=== PATIENT | female | born 1975 | race Caucasian/White ===

== ENCOUNTER 2017-01-20 11:22 | Emergency (ER) | payer OTHER ==
[~2017-01-20] VITALS: Ht 162.6 cm; Wt 80.0 kg
[~2017-01-20 11:22] MED LIST: BUSP10 PO; QUET200 PO
[2017-01-20 11:40] VITALS: BP 134/78; PULSE 91; RESP 16; TEMP 98.2; O2SAT 98
--- NOTE | 2017-01-20 12:07 | PD ---
HPI Chief Complaint: Psychiatric Symptoms Time Seen by Provider: 11:53 Travel History International Travel<30 days: No Contact w/Intl Traveler<30days: No Traveled to known affect area: No History of Present Illness HPI 41-year-old female that presents to the ED for evaluation of psychiatric evaluation. Patient was [place] acted by police after apparently she has been delusional having hallucinations. Patient herself is a poor historian and cannot really give me a good history. She seems to be somewhat psychotic. She denies any suicidal or homicidal ideation. Per patient she is here to get her medications adjusted. Per patient she takes trazodone and Prozac for depression. She denies any chest pain or shortness of breath. She was [place] acted by police. Patient per old records has a history of schizoaffective disorder. She denies any other medical issues. No cuts. No fevers chills or sweats. PFSH Past Medical History Cancer: No Cardiovascular Problems: No Diabetes: No Diminished Hearing: No Endocrine: No Headaches: No Immune Disorder: No Musculoskeletal: No Neurologic: No Psychiatric: Yes (pt states she was in the [facility] [place] 3 months ago) Respiratory: No Schizophrenia: Yes Seizures: No Tetanus Vaccination: < 5 Years Influenza Vaccination: No ?: Not LMP: 12/28/16 : 1 Para: 1 Social History Alcohol Use: Yes (occu) Tobacco Use: Yes (less than ppd) Substance Use: No Allergies-Medications (Allergen,Severity, Reaction): Coded Allergies: No Known Allergies (Unverified , 05/17/15) Reported Meds & Prescriptions Reported Meds & Active Scripts Active Quetiapine Fumarate 200 Mg Tab 600 Mg PO DIRECTED 15 Days Take 1 tab (200mg) by mouth every morning and take 3 tabs (600mg) by mouth every evening before bed. Buspar 10 mg Tab (Buspirone HCl) 10 Mg Tab 10 Mg PO Q8HR 15 Days Review of Systems Except as stated in HPI: all other systems reviewed are Neg Physical Exam Narrative GENERAL: SKIN: Warm and dry. HEAD: Atraumatic. Normocephalic. EYES: Pupils equal and round. No scleral icterus. No injection or drainage. ENT: No nasal bleeding or discharge. Mucous membranes pink and moist. Tongue is midline. No uvula deviation. NECK: Trachea midline. No JVD. CARDIOVASCULAR: Regular rate and rhythm. No murmurs, S3, S4. RESPIRATORY: No accessory muscle use. Clear to auscultation. Breath sounds equal bilaterally. GASTROINTESTINAL: Abdomen soft, non-tender, nondistended. Hepatic and splenic margins not palpable. MUSCULOSKELETAL: Extremities without clubbing, cyanosis, or edema. No obvious deformities. Full range of motion of the upper and lower extremities bilaterally. 2+ pulses bilaterally. NEUROLOGICAL: Awake and alert. No obvious cranial nerve deficits. Motor grossly within normal limits. Five out of 5 muscle strength in the arms and legs. Normal speech. PSYCHIATRIC: Appropriate mood and affect; insight and judgment normal. Data Data Last Documented VS Vital Signs Date Time Temp Pulse Resp B/P (MAP) Pulse Ox O2 Delivery O2 Flow Rate FiO2 01/20/17 11:40 98.2 91 16 134/78 (96) 98 Orders Orders Complete Blood Count With Diff (01/20/17 11:52) Comprehensive Metabolic Panel (01/20/17 11:52) Ed Urine Pregnancytest Poc (01/20/17 11:52) Psych Screen (01/20/17 11:52) Drug Screen, Random Urine (01/20/17 11:52) Alcohol (Ethanol) (01/20/17 11:52) Salicylates (Aspirin) (01/20/17 11:52) Tylenol (Acetaminophen) (01/20/17 11:52) ^ Sitter (01/20/17 12:07) Labs Laboratory Tests Test 01/20/17 12:10 White Blood Count 11.8 TH/MM3 Red Blood Count 4.18 MIL/MM3 Hemoglobin 14.1 GM/DL Hematocrit 40.2 % Mean Corpuscular Volume 96.0 FL Mean Corpuscular Hemoglobin 33.6 PG Mean Corpuscular Hemoglobin Concent 35.0 % Red Cell Distribution Width 13.4 % Platelet Count 346 TH/MM3 Mean Platelet Volume 6.9 FL Neutrophils (%) (Auto) 64.9 % Lymphocytes (%) (Auto) 27.9 % Monocytes (%) (Auto) 4.9 % Eosinophils (%) (Auto) 1.2 % Basophils (%) (Auto) 1.1 % Neutrophils # (Auto) 7.6 TH/MM3 Lymphocytes # (Auto) 3.3 TH/MM3 Monocytes # (Auto) 0.6 TH/MM3 Eosinophils # (Auto) 0.1 TH/MM3 Basophils # (Auto) 0.1 TH/MM3 CBC Comment DIFF FINAL Differential Comment Blood Urea Nitrogen 9 MG/DL Creatinine 1.06 MG/DL Random Glucose 98 MG/DL Total Protein 8.1 GM/DL Albumin 3.6 GM/DL Calcium Level 9.3 MG/DL Alkaline Phosphatase 104 U/L Aspartate Amino Transf (AST/SGOT) 22 U/L Alanine Aminotransferase (ALT/SGPT) 27 U/L Total Bilirubin 0.3 MG/DL Sodium Level 139 MEQ/L Potassium Level 4.0 MEQ/L Chloride Level 104 MEQ/L Carbon Dioxide Level 26.7 MEQ/L Anion Gap 8 MEQ/L Estimat Glomerular Filtration Rate 57 ML/MIN Salicylates Level 4.2 MG/DL Urine Opiates Screen NEG Acetaminophen Level LESS THAN 2.0 MCG/ML Urine Barbiturates Screen NEG Urine Amphetamines Screen NEG Urine Benzodiazepines Screen NEG Urine Cocaine Screen NEG Urine Cannabinoids Screen NEG Ethyl Alcohol Level LESS THAN 3 MG/DL MDM Medical Decision Making Medical Screen Exam Complete: Yes Emergency Medical Condition: Yes Medical Record Reviewed: Yes Interpretation(s) CBC & BMP Diagram 01/20/17 12:10 Total Protein 8.1, Albumin 3.6, Calcium Level 9.3, Alkaline Phosphatase 104, Aspartate Amino Transf (AST/SGOT) 22, Alanine Aminotransferase (ALT/SGPT) 27, Total Bilirubin 0.3 tox negative Differential Diagnosis Depression versus suicidal ideation versus anxiety versus adjustment disorder versus mood disorder versus bipolar disorder versus schizophrenia versus paranoid disorder versus psychosis versus substance abuse versus alcohol abuse versus alcohol induced psychosis versus homicidality addition versus cutting versus personality disorder Narrative Course 41-year-old female that presents to the ED for evaluation of psych. Patient was properly examined and was found to have signs and symptoms consistent with appears to be psychiatric illness. No sign of acute medical distress. Labs were drawn. Patient was medically cleared. Okay to be seen by psych. Mental health screening was discussed with the patient. Diagnosis Primary Impression: Schizophrenia Qualified Codes: F20.9 - Schizophrenia, unspecified Ian Rodriguez Jan 20, 2017 12:07
[2017-01-20 12:44] LABS: AUTOMATED NEUTROPHIL # 7.6 TH/MM3 (1.8-7.7); BASOPHIL # 0.1 TH/MM3 (0-0.2); BASOPHIL % 1.1 % (0.0-2.0); EOSINOPHIL # 0.1 TH/MM3 (0-0.4); EOSINOPHIL % 1.2 % (0.0-4.0); HEMATOCRIT 40.2 % (35.0-46.0); HEMO FLAGS DIFF FINAL; LYMPH % 27.9 % (9.0-44.0); LYMPHOCYTE # 3.3 TH/MM3 (1.0-4.8); MEAN CORPUSCULAR HEMOGLOBIN 33.6 PG (27.0-34.0); MONO % 4.9 % (0.0-8.0); NEUT % 64.9 % (16.0-70.0); PLATELET COUNT 346 TH/MM3 (150-450); RED BLOOD COUNT 4.18 MIL/MM3 (4.00-5.30); RED CELL DISTRIBUTION WIDTH 13.4 % (11.6-17.2); WHITE BLOOD COUNT 11.8 TH/MM3 (4.0-11.0)
[2017-01-20 13:02] LABS: ALT (GPT) 27 U/L (10-53); ANION GAP 8 MEQ/L (5-15); AST (GOT) 22 U/L (15-37); BICARBONATE 26.7 MEQ/L (21.0-32.0); BLOOD UREA NITROGEN 9 MG/DL (7-18); CHLORIDE 104 MEQ/L (98-107); GLOMERULAR FILTRATION RATE 57 ML/MIN (>89); SODIUM (NA) 139 MEQ/L (136-145)
[2017-01-20 13:03] LABS: ALKALINE PHOSPHATASE 104 U/L (45-117); TOTAL BILIRUBIN ADULT 0.3 MG/DL (0.2-1.0)
[2017-01-20 13:05] LABS: ACETAMINOPHEN LESS THAN 2.0 MCG/ML (10.0-30.0); ALCOHOL LESS THAN 3 MG/DL (0-5)
[2017-01-20 13:26] VITALS: BP 120/70; PULSE 80; RESP 18; O2SAT 100
[2017-01-20 18:50] VITALS: BP 145/67; PULSE 101; RESP 20; O2SAT 100
[2017-01-20] MEDS ORDERED: SERO300T PO (20:50)
[2017-01-20] MEDS ORDERED: SERO200T PO (20:50)
[2017-01-20] MEDS ORDERED: BUSP10TA PO (20:50)
[2017-01-20] MEDS: busPIRone HCL 10 MG TAB PO SCH (21:48)
[2017-01-20] MEDS ORDERED: QUEtiapine FUMARATE 300 MG TAB PO SCH (21:48)
[2017-01-20 22:00] VITALS: BP 117/57; PULSE 68; RESP 18; O2SAT 95
[2017-01-21 02:09] VITALS: BP 113/66; PULSE 87; RESP 18; O2SAT 97
[2017-01-21 06:08] VITALS: BP 115/69; PULSE 89; RESP 18; O2SAT 99
[2017-01-21] MEDS ORDERED: QUEtiapine FUMARATE 200 MG TAB PO SCH (09:00)
[2017-01-21] MEDS: busPIRone HCL 10 MG TAB PO SCH (09:50)
--- NOTE | 2017-01-21 12:57 | PD ---
History of Present Illness Chief Complaint: Psychiatric Symptoms Time Seen by Provider: 12:45 Travel History International Travel<30 Days: No Contact w/Intl Traveler<30days: No Known affected area: No Legal Status Legal Status: [place] Act [place] Act Signed By: LUIS E Jones, [facility] History of Present Illness: History of Present Illness HPI 41-year-old female with a history of schizophrenia that presents to the ED under a [place] act initiated by provider at [facility] . The BA states " patient is delusional and has been non -adherent with her medications. Disorganized and disoriented.. . Seen. Record reviewed. Patient monitored in J pod for extended period of time and presented no behavioral concerns. No suicidality. She does tell me that she slept and that she feels better this morning. She received 2 doses of Seroquel as well as Buspar. She is alert , oriented,calm. Speech is clear. Does not appear to be responding to internal stimuli. No suicidal or homicidal ideation. States has medication at home. denies any hallucinatory process. PFSH Past Medical History Cancer: No Cardiovascular Problems: No Diabetes: No Diminished Hearing: No Endocrine: No Headaches: No Immune Disorder: No Musculoskeletal: No Neurologic: No Psychiatric: Yes (pt states she was in the [facility] 3 months ago) Respiratory: No Schizophrenia: Yes Seizures: No Tetanus Vaccination: < 5 Years Influenza Vaccination: No ?: Not LMP: 12/28/16 : 1 Para: 1 Psychiatric History Psychiatric History Hx Psychiatric Treatment: Patient is currently seeing Dr. Metz History of Inpatient Treatment: Yes Guns or firearms in home: No Social History Single female . Lives by herself. Hx Alcohol Use: Yes (occu) Hx Tobacco Use: Yes (less than ppd) Hx Substance Use: No Hx of Substance Use Treatment: No Family Psychiatric History Negative Allergies-Medications (Allergen,Severity, Reaction): Coded Allergies: No Known Allergies (Unverified , 05/17/15) Reported Meds & Prescriptions Reported Meds & Active Scripts Active Reported Seroquel (Quetiapine Fumarate) 300 Mg Tab 600 Mg PO HS Seroquel (Quetiapine Fumarate) 200 Mg Tab 200 Mg PO DAILY Buspirone (Buspirone HCl) 10 Mg Tab 10 Mg PO TID Review of Systems Except as stated in HPI: all other systems reviewed are Neg Exam Alert: Yes [place]: Person Mood: Calm Affect: Appropriate Speech: Clear, Logical Eye Contact: Normal Hallucinations: Auditory (deneis any) Delusions: No Suicidal: Ideation (deneis any) Homicidal: Ideation (Deneis any) Insight/Judgement Fair. Not impaired. MDM Medical Decision Making Medical Record Reviewed: Yes Assessment/Plan 41-year-old female that presents to the ED for evaluation of psychiatric evaluation. Patient was [place] acted after apparently she has been delusional having hallucinations Patient may be at baseline She has also received medication. At the time of this evaluation denies any hallucinations, no suicidal or homicidal ideation, intent or plan. At this time does not meet [place] act criteria . Will lift BA Psychiatrically clear for discharge from ED. Orders Orders Diet Regular Basic (01/20/17 Dinner) Quetiapine (Seroquel) (01/21/17 09:00) Buspirone (Buspar) (01/20/17 21:48) Quetiapine (Seroquel) (01/20/17 21:48) Diet Regular Basic (01/21/17 Breakfast) Diet Regular Basic (01/21/17 Lunch) Results Vital Signs Date Time Temp Pulse Resp B/P (MAP) Pulse Ox O2 Delivery O2 Flow Rate FiO2 01/21/17 06:08 89 18 115/69 (84) 99 Room Air 01/21/17 02:09 87 18 113/66 (82) 97 Room Air 01/20/17 22:00 68 18 117/57 (77) 95 Room Air 01/20/17 19:21 101 20 01/20/17 18:50 101 20 145/67 (93) 100 Room Air 01/20/17 13:26 80 18 120/70 (87) 100 Room Air Diagnosis Primary Impression: Schizophrenia Psychiatrically Cleared: Yes Departure Forms: Tests/Procedures Patient Instructions: General Instructions Med/ Other Pt Specific Info: No Change to Meds Disposition: 01 DISCHARGE HOME Problem Qualifiers Primary Impression: Schizophrenia Qualified Codes: F20.9 - Schizophrenia, unspecified Anastasiia Hoang Jan 21, 2017 12:57
--- NOTE | 2017-01-21 13:10 | PD ---
Physical Exam Time Seen by Provider: 13:09 Narrative Please refer to previous providers documentation for details surrounding the patient's current visit. Data Data Last Documented VS Vital Signs Date Time Temp Pulse Resp B/P (MAP) Pulse Ox O2 Delivery O2 Flow Rate FiO2 01/21/17 06:08 89 18 115/69 (84) 99 Room Air 01/20/17 11:40 98.2 Orders Orders Complete Blood Count With Diff (01/20/17 11:52) Comprehensive Metabolic Panel (01/20/17 11:52) Ed Urine Pregnancytest Poc (01/20/17 11:52) Psych Screen (01/20/17 11:52) Drug Screen, Random Urine (01/20/17 11:52) Alcohol (Ethanol) (01/20/17 11:52) Salicylates (Aspirin) (01/20/17 11:52) Tylenol (Acetaminophen) (01/20/17 11:52) ^ Sitter (01/20/17 12:07) Diet Regular Basic (01/20/17 Dinner) Quetiapine (Seroquel) (01/21/17 09:00) Buspirone (Buspar) (01/20/17 21:48) Quetiapine (Seroquel) (01/20/17 21:48) Diet Regular Basic (01/21/17 Breakfast) Diet Regular Basic (01/21/17 Lunch) Labs Laboratory Tests Test 01/20/17 12:10 White Blood Count 11.8 TH/MM3 Red Blood Count 4.18 MIL/MM3 Hemoglobin 14.1 GM/DL Hematocrit 40.2 % Mean Corpuscular Volume 96.0 FL Mean Corpuscular Hemoglobin 33.6 PG Mean Corpuscular Hemoglobin Concent 35.0 % Red Cell Distribution Width 13.4 % Platelet Count 346 TH/MM3 Mean Platelet Volume 6.9 FL Neutrophils (%) (Auto) 64.9 % Lymphocytes (%) (Auto) 27.9 % Monocytes (%) (Auto) 4.9 % Eosinophils (%) (Auto) 1.2 % Basophils (%) (Auto) 1.1 % Neutrophils # (Auto) 7.6 TH/MM3 Lymphocytes # (Auto) 3.3 TH/MM3 Monocytes # (Auto) 0.6 TH/MM3 Eosinophils # (Auto) 0.1 TH/MM3 Basophils # (Auto) 0.1 TH/MM3 CBC Comment DIFF FINAL Differential Comment Blood Urea Nitrogen 9 MG/DL Creatinine 1.06 MG/DL Random Glucose 98 MG/DL Total Protein 8.1 GM/DL Albumin 3.6 GM/DL Calcium Level 9.3 MG/DL Alkaline Phosphatase 104 U/L Aspartate Amino Transf (AST/SGOT) 22 U/L Alanine Aminotransferase (ALT/SGPT) 27 U/L Total Bilirubin 0.3 MG/DL Sodium Level 139 MEQ/L Potassium Level 4.0 MEQ/L Chloride Level 104 MEQ/L Carbon Dioxide Level 26.7 MEQ/L Anion Gap 8 MEQ/L Estimat Glomerular Filtration Rate 57 ML/MIN Salicylates Level 4.2 MG/DL Urine Opiates Screen NEG Acetaminophen Level LESS THAN 2.0 MCG/ML Urine Barbiturates Screen NEG Urine Amphetamines Screen NEG Urine Benzodiazepines Screen NEG Urine Cocaine Screen NEG Urine Cannabinoids Screen NEG Ethyl Alcohol Level LESS THAN 3 MG/DL MDM Medical Record Reviewed: Yes Supervised Visit with RADHA: No Narrative Course Patient was brought in yesterday under a [place] act. Patient has been seen and evaluated by psychiatric assistant Gladys. She has lifted the [place] act and patient will be discharged home with diagnosis schizophrenia. Patient has medication available to her there. She'll be discharged at this time. Diagnosis Primary Impression: Schizophrenia Qualified Codes: F20.9 - Schizophrenia, unspecified Patient Instructions: General Instructions Departure Forms: Tests/Procedures Additional Instruction: Take all meds as previously prescribed. Follow up with current doctor at [facility]. Return to ED for any worsening. Med/Other Pt SpecificInfo: No Change to Meds Disposition: 01 DISCHARGE HOME Condition: Stable Nadia Javier Jan 21, 2017 13:10
[2017-01-21 13:17] VITALS: BP 115/69; PULSE 89; RESP 18; O2SAT 99
== END 2017-01-21 14:57 | disposition home or self-care (01) ==
LOC: NEPJ 11:22
DX: F20.9 Schizophrenia, unspecified (principal); Z79.899 Other long term (current) drug therapy
CPT/HCPCS: 80053; 80307; 84703; 85025; 99285

== ENCOUNTER 2017-02-25 15:37 | Inpatient (IN) | payer OTHER ==
[~2017-02-25] VITALS: Ht 162.6 cm; Wt 89.1 kg
[~2017-02-25 15:37] MED LIST changes: -BUSP10 PO; +BUSP10TA PO; -QUET200 PO; +SERO200T PO; +SERO300T PO
[2017-02-25 15:47] VITALS: BP 131/67; PULSE 92; RESP 20; TEMP 97.6; O2SAT 100
[2017-02-25 16:41] LABS: AUTOMATED NEUTROPHIL # 7.9 TH/MM3 (1.8-7.7); BASOPHIL # 0.1 TH/MM3 (0-0.2); BASOPHIL % 1.1 % (0.0-2.0); EOSINOPHIL # 0.1 TH/MM3 (0-0.4); EOSINOPHIL % 0.8 % (0.0-4.0); HEMATOCRIT 43.3 % (35.0-46.0); HEMO FLAGS DIFF FINAL; LYMPH % 26.6 % (9.0-44.0); LYMPHOCYTE # 3.2 TH/MM3 (1.0-4.8); MEAN CORPUSCULAR HEMOGLOBIN 32.4 PG (27.0-34.0); MEAN CORPUSCULAR HGB CONC 34.1 % (32.0-36.0); MONO % 6.2 % (0.0-8.0); NEUT % 65.3 % (16.0-70.0); PLATELET COUNT 401 TH/MM3 (150-450); RED BLOOD COUNT 4.56 MIL/MM3 (4.00-5.30); RED CELL DISTRIBUTION WIDTH 13.2 % (11.6-17.2)
[2017-02-25 16:48] LABS: BLOOD, URINE MOD (NEG); COMMENT (UR) CULT NOT INDICATED; CULTURE IF INDICATED CULT NOT INDICATED; GLUCOSE,URINE NEG (NEG); KETONE, URINE TRACE mg/dL (NEG); NITRITE,URINE NEG (NEG); PH, URINE 6.5 (5.0-8.5); SQUAMOUS EPITHELIAL CELL URINE 1 /hpf (0-5); URINE COLOR YELLOW (YELLW/STRAW)
[2017-02-25 17:05] LABS: ALT (GPT) 53 U/L (10-53); ANION GAP 8 MEQ/L (5-15); AST (GOT) 39 U/L (15-37); BICARBONATE 24.1 MEQ/L (21.0-32.0); BLOOD UREA NITROGEN 13 MG/DL (7-18); CHLORIDE 105 MEQ/L (98-107); GLOMERULAR FILTRATION RATE 57 ML/MIN (>89); POTASSIUM 3.4 MEQ/L (3.5-5.1); SODIUM (NA) 137 MEQ/L (136-145)
[2017-02-25 17:07] LABS: ALKALINE PHOSPHATASE 94 U/L (45-117); TOTAL BILIRUBIN ADULT 0.4 MG/DL (0.2-1.0)
[2017-02-25] MEDS ORDERED: POTASSIUM CHLORIDE 20 MEQ CONTROLLED RELEASE TAB PO ONE (18:00)
--- NOTE | 2017-02-25 18:00 | PD ---
HPI Chief Complaint: Psychiatric Symptoms Time Seen by Provider: 17:56 Travel History International Travel<30 days: No Contact w/Intl Traveler<30days: No Traveled to known affect area: No History of Present Illness HPI This is a 41-year-old female with history of schizophrenia who presents under ex parte today sign by a house director. According to her paperwork the patient threatened to kill her father as he was attempting to talk her into seeking help for her psychiatric condition. In addition paperwork states that she has delusions of grandeur expressed verbally, engages and self abuse, has been refusing psychiatric evaluation or treatment. The patient reports noncompliance with her psychiatric medications. She is somewhat of a poor historian so history is primarily obtained from her paperwork and chart review. PFSH Past Medical History Cancer: No Cardiovascular Problems: No Diabetes: No Diminished Hearing: No Endocrine: No Headaches: No Immune Disorder: No Implanted Vascular Access Dvce: No Musculoskeletal: No Neurologic: No Psychiatric: Yes (pt states she was in the [facility] 3 months ago) Respiratory: No Schizophrenia: Yes Seizures: No Tetanus Vaccination: < 5 Years ?: Not : 1 Para: 1 Past Surgical History Surgical History: No Previous Surgery Other Surgery: No Social History Alcohol Use: Yes (occu) Tobacco Use: Yes (less than ppd) Substance Use: No Allergies-Medications (Allergen,Severity, Reaction): Coded Allergies: No Known Allergies (Unverified , 02/25/17) Reported Meds & Prescriptions Reported Meds & Active Scripts Active Reported Seroquel (Quetiapine Fumarate) 300 Mg Tab 600 Mg PO HS Seroquel (Quetiapine Fumarate) 200 Mg Tab 200 Mg PO DAILY Buspirone (Buspirone HCl) 10 Mg Tab 10 Mg PO TID Review of Systems Except as stated in HPI: all other systems reviewed are Neg Physical Exam Narrative GENERAL: Well-developed well-nourished female in no acute distress eating hospital. Initial examination. SKIN: Warm and dry. HEAD: Atraumatic. Normocephalic. EYES: Pupils equal and round. No scleral icterus. No injection or drainage. ENT: No nasal bleeding or discharge. Mucous membranes pink and moist. NECK: Trachea midline. No JVD. CARDIOVASCULAR: Regular rate and rhythm. No murmur appreciated. RESPIRATORY: No accessory muscle use. Clear to auscultation. Breath sounds equal bilaterally. GASTROINTESTINAL: Abdomen soft, non-tender, nondistended. Hepatic and splenic margins not palpable. MUSCULOSKELETAL: No obvious deformities. No clubbing. No cyanosis. No edema. NEUROLOGICAL: Awake and alert. No obvious cranial nerve deficits. Motor grossly within normal limits. PSYCHIATRIC: Rapid pressured speech, flat affect, insight and judgment appear limited Data Data Last Documented VS Vital Signs Date Time Temp Pulse Resp B/P (MAP) Pulse Ox O2 Delivery O2 Flow Rate FiO2 02/25/17 18:18 80 18 115/62 (79) 99 Room Air 02/25/17 15:47 97.6 Orders Orders Complete Blood Count With Diff (02/25/17 16:11) Comprehensive Metabolic Panel (02/25/17 16:11) Urinalysis - C+S If Indicated (02/25/17 16:11) Psych Screen (02/25/17 16:11) Drug Screen, Random Urine (02/25/17 16:11) Diet Regular Basic (02/25/17 Dinner) Potassium Chloride (Kcl) (02/25/17 18:00) Labs Laboratory Tests Test 02/25/17 16:10 White Blood Count 12.0 TH/MM3 Red Blood Count 4.56 MIL/MM3 Hemoglobin 14.8 GM/DL Hematocrit 43.3 % Mean Corpuscular Volume 95.0 FL Mean Corpuscular Hemoglobin 32.4 PG Mean Corpuscular Hemoglobin Concent 34.1 % Red Cell Distribution Width 13.2 % Platelet Count 401 TH/MM3 Mean Platelet Volume 6.8 FL Neutrophils (%) (Auto) 65.3 % Lymphocytes (%) (Auto) 26.6 % Monocytes (%) (Auto) 6.2 % Eosinophils (%) (Auto) 0.8 % Basophils (%) (Auto) 1.1 % Neutrophils # (Auto) 7.9 TH/MM3 Lymphocytes # (Auto) 3.2 TH/MM3 Monocytes # (Auto) 0.7 TH/MM3 Eosinophils # (Auto) 0.1 TH/MM3 Basophils # (Auto) 0.1 TH/MM3 CBC Comment DIFF FINAL Differential Comment Urine Color YELLOW Urine Turbidity CLEAR Urine pH 6.5 Urine Specific [place] 1.021 Urine Protein 30 mg/dL Urine Glucose (UA) NEG mg/dL Urine Ketones TRACE mg/dL Urine Occult Blood MOD Urine Nitrite NEG Urine Bilirubin NEG Urine Urobilinogen 2.0 MG/DL Urine Leukocyte Esterase SMALL Urine RBC 4 /hpf Urine WBC 3 /hpf Urine Squamous Epithelial Cells 1 /hpf Microscopic Urinalysis Comment CULT NOT INDICATED Blood Urea Nitrogen 13 MG/DL Creatinine 1.07 MG/DL Random Glucose 92 MG/DL Total Protein 8.1 GM/DL Albumin 3.5 GM/DL Calcium Level 8.8 MG/DL Alkaline Phosphatase 94 U/L Aspartate Amino Transf (AST/SGOT) 39 U/L Alanine Aminotransferase (ALT/SGPT) 53 U/L Total Bilirubin 0.4 MG/DL Sodium Level 137 MEQ/L Potassium Level 3.4 MEQ/L Chloride Level 105 MEQ/L Carbon Dioxide Level 24.1 MEQ/L Anion Gap 8 MEQ/L Estimat Glomerular Filtration Rate 57 ML/MIN Urine Opiates Screen NEG Urine Barbiturates Screen NEG Urine Amphetamines Screen NEG Urine Benzodiazepines Screen NEG Urine Cocaine Screen NEG Urine Cannabinoids Screen NEG MDM Medical Decision Making Medical Screen Exam Complete: Yes Emergency Medical Condition: Yes Medical Record Reviewed: Yes Differential Diagnosis Schizophrenia, medication noncompliance, acute psychosis, substance induced mood disorder, schizoaffective disorder, delirium, encephalitis, meningitis Narrative Course 41-year-old female with history of schizophrenia presents under ex parte signed by house director for psychiatric evaluation. Mental health screening discussed with the patient. Psychiatric screen ordered. Her lab work is repeated. Her potassium is mildly low, she was given 40 mEq of oral potassium chloride. The patient is medically cleared for psychiatric disposition. Diagnosis Primary Impression: Schizophrenia Qualified Codes: F20.9 - Schizophrenia, unspecified Deondre Maddox Feb 25, 2017 18:00
[2017-02-25 18:18] VITALS: BP 115/62; PULSE 80; RESP 18; O2SAT 99
[2017-02-25] MEDS ORDERED: TRAZ1TAB45 PO (21:21)
[2017-02-25] MEDS ORDERED: ARIP1TAB13 PO (21:26)
[2017-02-25 22:02] VITALS: BP 152/64; PULSE 73; RESP 16; O2SAT 96
[2017-02-26 02:00] VITALS: BP 118/58; PULSE 82; RESP 16; O2SAT 97
[2017-02-26 06:11] VITALS: BP 115/55; PULSE 89; RESP 17; O2SAT 97
[2017-02-26] MEDS ORDERED: MAGNESIUM HYDROXIDE SUSP 30 ML CUP PO PRN (10:45)
[2017-02-26] MEDS ORDERED: ALUMINUM/MAGNESIUM/SIMETH 30 ML CUP PO PRN (10:45)
[2017-02-26 12:59] VITALS: BP 121/59; PULSE 58; RESP 20; TEMP 96.3; O2SAT 98
[2017-02-26] MEDS: NICOTINE 21 MG/24 HR PATCH T-DERMAL SCH (14:55)
[2017-02-26] MEDS: ARIPiprazole 15 MG TAB PO SCH (14:55)
[2017-02-26 16:57] VITALS: BP 110/69; PULSE 92; RESP 18; TEMP 97.9; O2SAT 98
[2017-02-26 17:11] VITALS: BP 113/58; PULSE 57; RESP 16; TEMP 96.9; O2SAT 99
[2017-02-26] MEDS: traZODone HCL 50 MG TAB PO SCH (20:48)
[2017-02-26] MEDS: REMOVE OLD NICODERM (NICOTINE) PATCH T-DERMAL SCH (20:48)
[2017-02-27 06:24] VITALS: BP 118/57; PULSE 72; RESP 17; TEMP 98.1; O2SAT 99
[2017-02-27] MEDS: ARIPiprazole 15 MG TAB PO SCH (10:27)
[2017-02-27] MEDS: NICOTINE 21 MG/24 HR PATCH T-DERMAL SCH (10:28)
[2017-02-27] MEDS: MENTHOL LOZENGE BUCCAL PRN ×3 (12:45→21:49)
--- NOTE | 2017-02-27 17:17 | HHI.HP ---
Provisional Diagnosis Admission Date Feb 26, 2017 at 10:37 [facility] Bipolar disorder Certification of Person's Competence To Provide Express and Informed Consent I have personally examined Hugo Ashford , a person being served at [facility] on, Feb 27, 2017 17:17. Express and informed consent means consent voluntarily given in writing, by a competent person, after sufficient explanation and disclosure of the subject matter involved to enable the person to make a knowing and willful decision without any element of force, fraud, deceit, duress, or other form of constraint or coercion. This person is 18 years of age or older, is not now known to be incompetent to consent to treatment with a guardian advocate, and does not have a health care surrogate or proxy currently making medical treatment decisions. I have found this person to be one of the following: [x] Competent to provide express and informed consent, as defined above, for voluntary admission to this facility and is competent to provide express and informed consent for treatment. He/she has the consistent capacity to make well reasoned, willful, and knowing decisions concerning his or her medical or mental health treatment. The person fully and consistently understands the purpose of the admission for examination/placement and is fully capable of personally exercising all rights assured [place] Incompetent to provide express and informed consent to voluntary admission, and this is incompetent to provide express and informed consent to treatment. The person must be transferred to involuntary status and a petition for a guardian advocate filed with the Circuit Court. [] Refusing to provide express and informed consent to voluntary admission but is competent to provide express and informed consent for treatment. The person must be discharged or transferred to involuntary status. Form shall be completed within 24 hours of a person's arrival at the receiving facility and filed in the clinical record of each person: 1. Admitted on a voluntary basis 2. Permitted to provide express and informed consent to his/her own treatment 3. Allowed to transfer from involuntary to voluntary status 4. Prior to permitting a person to consent to his or her own treatment after having been previously found incompetent to consent to treatment. History of Present Illness Capacity: Has Capacity HPI Patient is a 41 y/o woman with no children, unemployed, with unclear past psychiatric history, bipolar as per chart but depression and anxiety as per pt, previous psychiatric admissions, no prior suicide attempts or self injurious behavior, who was brought under exparte due to patient threated to kil her father and noted having delusions of grandeur which she was transferred to the inpatient psychiatry unit for further evaluation and management. Patient was seen on the inpatient psychiatry unit, able to engage in interview and noted to have pressured speech. Patient states that she that she wants to do volunteer work, a "self fulfilling prophecy" wanting to help the "homeless and consumers". She states that she has neurosis which makes her hypochondria. She reports decreased need for sleep which she has been up for weeks "I dont sleep I only nap" which she is up cleaning all night. She also reports decreased concentration, increased energy lately, racing thoughts, distractibility, irritable at times but denies any perceptual disturbances. She reports having some paranoia. Currently she reports feeling "pretty good". She states that her payee is Tomi Ribera (father) [phone]. Family psychiatric history: "mom is retarded" Past psychiatric history: previous psychiatric diagnosis of bipolar disorder as per chart but patient denies this and states depression and anxiety, three previous psychiatric admissions, no previous suicide attempt or history of self injurious behavior. Outpatient psychiatrist at [facility] which she reports being prescribed trazodone, buspar, prozac. Substance use history: tobacco (+), denies history of alcohol or any other illicit drug use. 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 Review of Systems Except as stated in HPI: all other systems reviewed are Neg Past Psych History Violence risk - others (6 mos) moderate Violence risk - self (6 mos) low Substance Abuse History Drugs/Alcohol past 12 months tobacco (+), denies history of alcohol or any other illicit drug use. Past Family Social History Coded Allergies: No Known Allergies (Unverified , 02/25/17) Reported Medications Aripiprazole (Aripiprazole) 15 Mg Tab, 15 MG PO DAILY, #30 TAB 0 Refills 02/25/17 Trazodone (Trazodone) 150 Mg Tablet, 150 MG PO HS for Control Depression, #30 TAB 0 Refills 02/25/17 Discontinued Reported Medications Quetiapine (Seroquel) 300 Mg Tab, 600 MG PO HS, #30 TAB 0 Refills 01/20/17 Quetiapine (Seroquel) 200 Mg Tab, 200 MG PO DAILY, #30 TAB 0 Refills 01/20/17 Buspirone (Buspirone) 10 Mg Tab, 10 MG PO TID for Anxiety, TAB 0 Refills 01/20/17 Current Medications Medications (Trade) Dose Ordered Sig/Pino Route Start Time Stop Time Status Last Admin (David Lopez) 1 lozenge 5 TIMES A DAY PRN BUCCAL 02/25/17 23:00 02/27/17 15:55 (Abilify) 15 mg DAILY PO 02/26/17 12:00 02/27/17 10:27 (Desyrel) 150 mg HS PO 02/26/17 21:00 02/26/17 20:48 (Milk Of Magnesia Liq) 30 ml DAILY PRN PO 02/26/17 10:45 (Mag-Al Plus Susp Liq) 30 ml Q6H PRN PO 02/26/17 10:45 (Habitrol 21 Mg Patch.24 Hr) 1 patch DAILY T-DERMAL 02/26/17 12:00 02/27/17 10:28 Miscellaneous Information 1 HS T-DERMAL 02/26/17 21:00 Social History , unemployed, lives alone, on SSI, reports having several degress including 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 Patient's Strengths (min. 2) fluent and spontaneous Physical Exam Patient found to be in no acute distress, no noted gross motor abnormalities, no tremors of EPS, no noted psychomotor agitation of retardation. Vital Signs Vital Signs Date Time Temp Pulse Resp B/P (MAP) Pulse Ox O2 Delivery O2 Flow Rate FiO2 02/27/17 06:24 98.1 72 17 118/57 (77) 99 02/26/17 06:11 Room Air Mental Status Examination Appearance: Appropriate Consciousness: Alert Orientation: Person, Place Motor Activity: Normal gait Speech: Pressured Language: Adequate Fund of Knowledge: Adequate Attention and Concentration: Easily Distracted Memory: Unremarkable Mood: Anxious Affect: Labile Thought Process & Associations: Loose associations Thought Content: Racing thoughts, Delusional Hallucination Type: None Delusion Type: Other (grandeur) Suicidal Ideation: No Suicidal Plan: No Suicidal Intention: No Homicidal Ideation: No Homicidal Plan: No Homicidal Intention: No Insight: Poor Judgment: Poor Assessment & Plan Problem List: (1) Bipolar 1 disorder ICD Codes: F31.9 - Bipolar disorder, unspecified Assessment & Plan Estimated LOS: 5-7 days. Patient is a 41 y/o woman who carries a diagnosis of bipolar disorder who was brought in under exparte for threatening to kill her father and medications noncompliance. Will continue abilfy 15mg PO BID for mood stabilization. Monitor for medication response ADRs. Continue to monitor mood and behavior. Collateral pending. Discharge planning in progress. Hai Montoya MD Feb 27, 2017 17:17
[2017-02-27 18:44] VITALS: BP 126/71; PULSE 77; RESP 16; TEMP 98.7; O2SAT 99
[2017-02-27] MEDS: REMOVE OLD NICODERM (NICOTINE) PATCH T-DERMAL SCH (21:00)
[2017-02-27] MEDS: traZODone HCL 50 MG TAB PO SCH (21:00)
[2017-02-28] MEDS: MENTHOL LOZENGE BUCCAL PRN ×3 (05:13→21:24)
[2017-02-28 05:57] VITALS: BP 115/75; PULSE 68; RESP 18; TEMP 97.8; O2SAT 100
[2017-02-28] MEDS: NICOTINE 21 MG/24 HR PATCH T-DERMAL SCH (08:21)
[2017-02-28] MEDS: REMOVE OLD NICODERM (NICOTINE) PATCH T-DERMAL SCH (08:21)
[2017-02-28] MEDS: ARIPiprazole 15 MG TAB PO SCH (08:21)
--- NOTE | 2017-02-28 17:02 | HHI.PYPN ---
Subjective Remarks Patient seen for follow-up, chart reviewed. Patient found participating in ice cream social group. She states having slept well last night "I got rested...I got welcomed in the REM". she states attending groups, eating and drinking ok, no problem with bowel movement. She reports her mood as being "good" but states that her thoughts wander and gets distracted. She mentions that she wants to get her payee on the phone (Tomi her father). Review of Systems Except as stated in HPI: all other systems reviewed are Neg Mental Status Examination Appearance: Appropriate Consciousness: Alert Orientation: Person, Place Motor Activity: Normal gait Speech: Pressured Language: Adequate Fund of Knowledge: Adequate Attention and Concentration: Easily Distracted Memory: Unremarkable Mood: Good Affect: Labile Thought Process & Associations: Tangential Thought Content: Racing thoughts, Delusional Hallucination Type: None Delusion Type: Other (grandeur) Suicidal Ideation: No Suicidal Plan: No Suicidal Intention: No Homicidal Ideation: No Homicidal Plan: No Homicidal Intention: No Insight: Poor Judgment: Poor Results Vitals/IOs Vital Signs Date Time Temp Pulse Resp B/P (MAP) Pulse Ox O2 Delivery O2 Flow Rate FiO2 02/28/17 05:57 97.8 68 18 115/75 (88) 100 02/26/17 06:11 Room Air Assessment & Plan Problem List: (1) Bipolar 1 disorder ICD Codes: F31.9 - Bipolar disorder, unspecified Assessment & Plan Patient continues to be noted to have pressured speech, tangential, and with some disorganization. Will increase aripirazole to 20mg PO daily for mood stabilization. Discharge planning in progress. Justification for Cont. Inpt. At risk for further decompensation if at lower level of care. Discharge Planning Patient once stabilized will return back home. Hai Montoya MD Feb 28, 2017 17:02
[2017-02-28 18:00] VITALS: BP 139/73; PULSE 91; RESP 17; TEMP 98; O2SAT 98
[2017-02-28] MEDS: traZODone HCL 50 MG TAB PO SCH (21:24)
[2017-03-01 06:23] VITALS: BP 106/59; PULSE 79; RESP 18; TEMP 97.6; O2SAT 98
[2017-03-01] MEDS: NICOTINE 21 MG/24 HR PATCH T-DERMAL SCH (09:00)
--- NOTE | 2017-03-01 15:01 | HHI.PYPN ---
Subjective Remarks Pt seen and discussed with staff. She has been engaging and interacting with peers and staff on unit and attending therapeutic activities. She is compliant with care and medications. No behavioral problems.No SI/HI She is tolerating increased dose of abilify without side effects and is less pressured in speech todya. Mental Status Examination Appearance: Appropriate Consciousness: Alert Orientation: Person, Place Motor Activity: Normal gait Speech: Pressured ( decreased) Language: Adequate Fund of Knowledge: Adequate Attention and Concentration: Adequate Memory: Unremarkable Mood: Good Affect: Labile (decreased) Thought Process & Associations: Tangential Thought Content: Racing thoughts, Delusional Hallucination Type: None Delusion Type: Other (grandeur) Suicidal Ideation: No Suicidal Plan: No Suicidal Intention: No Homicidal Ideation: No Homicidal Plan: No Homicidal Intention: No Insight: Poor Judgment: Poor Results Vitals/IOs Vital Signs Date Time Temp Pulse Resp B/P (MAP) Pulse Ox O2 Delivery O2 Flow Rate FiO2 03/01/17 06:23 97.6 79 18 106/59 (75) 98 02/26/17 06:11 Room Air Assessment & Plan Problem List: (1) Bipolar 1 disorder ICD Codes: F31.9 - Bipolar disorder, unspecified Assessment & Plan Cotninue current tx plan. Estimated LOS: days Justification for Cont. Inpt. risk of decompensation Joseline Lopez MD Mar 01, 2017 15:01
[2017-03-01 18:30] VITALS: BP 135/63; PULSE 91; RESP 18; TEMP 98.6; O2SAT 97
[2017-03-01] MEDS: REMOVE OLD NICODERM (NICOTINE) PATCH T-DERMAL SCH (21:00)
[2017-03-01] MEDS: traZODone HCL 50 MG TAB PO SCH (21:17)
[2017-03-01] MEDS: MENTHOL LOZENGE BUCCAL PRN (22:23)
[2017-03-02 06:01] VITALS: BP 107/59; PULSE 77; RESP 16; TEMP 98; O2SAT 77
[2017-03-02] MEDS: NICOTINE 21 MG/24 HR PATCH T-DERMAL SCH (08:44)
[2017-03-02] MEDS ORDERED: INFLUENZA VIRUS VACCINE (QUADRIVALENT) 0.5 ML SYR IM ONE (10:00)
--- NOTE | 2017-03-02 13:40 | HHI.PYPN ---
Subjective Remarks Pt seen and discussed with staff. She remains compliant with medications and denies side effects. She remains with grandiose delusions but has been cooperative with care. No behavioral problems on unit. Mental Status Examination Appearance: Appropriate Consciousness: Alert Orientation: Person, Place Motor Activity: Normal gait Speech: Pressured ( decreased) Language: Adequate Fund of Knowledge: Adequate Attention and Concentration: Adequate Memory: Unremarkable Mood: Good Affect: Labile (decreased) Thought Process & Associations: Tangential Thought Content: Racing thoughts, Delusional Hallucination Type: None Delusion Type: Other (grandeur) Suicidal Ideation: No Suicidal Plan: No Suicidal Intention: No Homicidal Ideation: No Homicidal Plan: No Homicidal Intention: No Insight: Poor Judgment: Poor Results Vitals/IOs Vital Signs Date Time Temp Pulse Resp B/P (MAP) Pulse Ox O2 Delivery O2 Flow Rate FiO2 03/02/17 06:01 98.0 77 16 107/59 (75) 77 Assessment & Plan Problem List: (1) Bipolar 1 disorder ICD Codes: F31.9 - Bipolar disorder, unspecified Assessment & Plan Continue current tx plan. Pt improving. Estimated LOS: days Justification for Cont. Inpt. risk of decompensation Joseline Lopez MD Mar 02, 2017 13:40
[2017-03-02 17:10] VITALS: BP 138/81; PULSE 98; RESP 18; TEMP 98.2; O2SAT 99
[2017-03-02] MEDS: REMOVE OLD NICODERM (NICOTINE) PATCH T-DERMAL SCH (21:00)
[2017-03-02] MEDS: traZODone HCL 50 MG TAB PO SCH (21:19)
[2017-03-03 06:23] VITALS: BP 127/65; PULSE 83; RESP 18; TEMP 98.5; O2SAT 97
[2017-03-03] MEDS: NICOTINE 21 MG/24 HR PATCH T-DERMAL SCH (08:21)
--- NOTE | 2017-03-03 16:17 | HHI.PYPN ---
Subjective Remarks Patient seen for follow-up, chart reviewed. Patient found participating in group activity outside. Patient, cooperative interview. Patient states that she is feeling "alright" and of the weekend was "good" reporting having to groups. Patient states that she spoke with you go (her father) and explained to him why she "wigged out" and that she had "cleared the air" with him. Patient continues be noted to be tangential and slightly disorganized during interview. Patient reports having then I will stabilizer in the past and also having bulimia before during one her tangential statements. Review of Systems Except as stated in HPI: all other systems reviewed are Neg Mental Status Examination Appearance: Appropriate Consciousness: Alert Orientation: Person, Place Motor Activity: Normal gait Speech: Pressured (less so today but still present) Language: Adequate Fund of Knowledge: Adequate Attention and Concentration: Adequate Memory: Unremarkable Mood: Good Affect: Labile (decreased) Thought Process & Associations: Tangential Thought Content: Racing thoughts, Delusional (less so today) Hallucination Type: None Delusion Type: Other (grandeur) Suicidal Ideation: No Suicidal Plan: No Suicidal Intention: No Homicidal Ideation: No Homicidal Plan: No Homicidal Intention: No Insight: Poor Judgment: Poor Results Vitals/IOs Vital Signs Date Time Temp Pulse Resp B/P (MAP) Pulse Ox O2 Delivery O2 Flow Rate FiO2 03/03/17 06:23 98.5 83 18 127/65 (85) 97 Assessment & Plan Problem List: (1) Bipolar 1 disorder ICD Codes: F31.9 - Bipolar disorder, unspecified Assessment & Plan Patient this time continues to be noted to have some disorganization and tangentiality during interview as well as some pressured speech. Patient appears to have responded partially to Abilify continues to be noted to have some symptoms. We will transition patient over to Zyprexa 5 mg by mouth twice a day for mood stabilization and discontinue Abilify. Monitor for medication response and adverse drug reactions. Collateral pending from patient's father. Discharge planning in progress Justification for Cont. Inpt. Patient seen for follow-up, chart reviewed. Discharge Planning Patient will likely return back home with psychiatric stable. Hai Montoya MD Mar 03, 2017 16:17
[2017-03-03] MEDS: MENTHOL LOZENGE BUCCAL PRN (16:54)
[2017-03-03 18:00] VITALS: BP 115/65; PULSE 92; RESP 18; TEMP 98.7; O2SAT 98
[2017-03-03] MEDS: REMOVE OLD NICODERM (NICOTINE) PATCH T-DERMAL SCH (21:00)
[2017-03-03] MEDS: OLANZapine 5 MG TAB PO SCH (21:00)
[2017-03-03] MEDS: traZODone HCL 50 MG TAB PO SCH (21:21)
[2017-03-04 06:06] VITALS: BP 114/62; PULSE 65; RESP 18; TEMP 98.6; O2SAT 99
[2017-03-04] MEDS: NICOTINE 21 MG/24 HR PATCH T-DERMAL SCH (09:00)
[2017-03-04] MEDS: OLANZapine 5 MG TAB PO SCH (09:59)
--- NOTE | 2017-03-04 13:38 | HHI.PYPN ---
Subjective Remarks Patient seen for follow-up, chart reviewed. Patient states that she has slept much better than the previous nights. Patient denies any side effects from medications and tolerating well. Patient reports eating and drinking well patient continued to be noticed to be disorganized but less so today, also with slightly less pressured speech today. She reports that she is "thinking clear and working on getting organized". This time denies any perceptual disturbances. Review of Systems Except as stated in HPI: all other systems reviewed are Neg Mental Status Examination Appearance: Appropriate Consciousness: Alert Orientation: Person, Place Motor Activity: Normal gait Speech: Pressured (less so today but still present) Language: Adequate Fund of Knowledge: Adequate Attention and Concentration: Adequate Memory: Unremarkable Mood: Good Affect: Labile (decreased) Thought Process & Associations: Disorganized (less so today.), Tangential Thought Content: Racing thoughts, Delusional (less so today) Hallucination Type: None Delusion Type: Other (grandeur) Suicidal Ideation: No Suicidal Plan: No Suicidal Intention: No Homicidal Ideation: No Homicidal Plan: No Homicidal Intention: No Insight: Poor Judgment: Poor Results Vitals/IOs Vital Signs Date Time Temp Pulse Resp B/P (MAP) Pulse Ox O2 Delivery O2 Flow Rate FiO2 03/04/17 06:06 98.6 65 18 114/62 (79) 99 Assessment & Plan Problem List: (1) Bipolar 1 disorder ICD Codes: F31.9 - Bipolar disorder, unspecified Assessment & Plan Patient tolerating recent change and mood stabilizer. Patient continues to be noted to be slightly disorganized still, but noted to be having less pressured speech and sleeping much better. We'll increase olanzapine to 5 mg a.m./10 mg at bedtime. Continue rest of medications. Discharge planning in progress Justification for Cont. Inpt. At risk for further decompensation if at lower level of care Discharge Planning Patient likely to return back to her residence once psychiatrically stable. Hai Montoya MD Mar 04, 2017 13:38
[2017-03-04 18:56] VITALS: BP 144/74; PULSE 114; RESP 18; TEMP 98.5; O2SAT 98
[2017-03-04] MEDS ORDERED: OLANZapine 10 MG TAB PO SCH (21:00)
[2017-03-04] MEDS: REMOVE OLD NICODERM (NICOTINE) PATCH T-DERMAL SCH (21:00)
[2017-03-04] MEDS: traZODone HCL 50 MG TAB PO SCH (21:00)
[2017-03-04] MEDS: MENTHOL LOZENGE BUCCAL PRN (22:00)
[2017-03-05 05:25] VITALS: BP 99/56; PULSE 76; RESP 18; TEMP 98.3; O2SAT 96
[2017-03-05] MEDS ORDERED: OLANZapine 5 MG TAB PO SCH (09:00)
[2017-03-05] MEDS: NICOTINE 21 MG/24 HR PATCH T-DERMAL SCH (09:07)
--- NOTE | 2017-03-05 15:48 | HHI.PYPN ---
Subjective Remarks Patient seen for follow-up, chart reviewed. Patient states that she is currently feeling "good" patient reports having rested much better last evening. Patient states that her mood today was "a bit cranky" taking about how she had treated on neighbor recently. Patient states that she last spoke with Tomi weatherss her father) about 3 days ago and has not come in contact with him since. Patient states that she is taking a little clearer, decreased racing thoughts and feels the medication is helping. Patient continues to be noted to be slightly disorganized with decreased pressured speech as well as decreased tangentiality. Patient also mentioned of recent behavior of purging in an attempt to lose weight as well as increase physical exercise activity to lose weight which had been ongoing prior to her admission. Patient states that since her admission she had only vomited once but since has not. Review of Systems Except as stated in HPI: all other systems reviewed are Neg Mental Status Examination Appearance: Appropriate Consciousness: Alert Orientation: Person, Place Motor Activity: Normal gait Speech: Pressured (less so today but still present) Language: Adequate Fund of Knowledge: Adequate Attention and Concentration: Adequate Memory: Unremarkable Mood: Good Affect: Labile (less so today) Thought Process & Associations: Disorganized (less so today.), Tangential ( less so today) Thought Content: Racing thoughts (less so today), Delusional (less so today) Hallucination Type: None Delusion Type: Other (grandeur) Suicidal Ideation: No Suicidal Plan: No Suicidal Intention: No Homicidal Ideation: No Homicidal Plan: No Homicidal Intention: No Insight: Poor Judgment: Poor Results Vitals/IOs Vital Signs Date Time Temp Pulse Resp B/P (MAP) Pulse Ox O2 Delivery O2 Flow Rate FiO2 03/05/17 05:25 98.3 76 18 99/56 (70) 96 Assessment & Plan Problem List: (1) Bipolar 1 disorder ICD Codes: F31.9 - Bipolar disorder, unspecified Assessment & Plan Patient responding well to current treatment, although continues be noted to be slightly disorganized, slightly tangential but able to engage more the scenario writer today. We'll increase olanzapine to 10 mg by mouth twice a day for mood stabilization. Discussion about dangers of purging were reviewed with the patient she acknowledged. Patient reports wanting to decrease his activity and is aware of the risks associated with it. Patient has not had any purging during her admission reported by staff. Discharge planning in progress Justification for Cont. Inpt. At risk for further decompensation if at lower level of care Discharge Planning Patient likely to return back to her residence was psychiatrically stable. Hai Montoya MD Mar 05, 2017 15:48
[2017-03-05 18:00] VITALS: BP 141/67; PULSE 86; RESP 18; TEMP 97.9; O2SAT 98
[2017-03-05] MEDS: REMOVE OLD NICODERM (NICOTINE) PATCH T-DERMAL SCH (21:00)
[2017-03-05] MEDS: traZODone HCL 50 MG TAB PO SCH (21:31)
[2017-03-05] MEDS: OLANZapine 10 MG TAB PO SCH (21:32)
[2017-03-06 05:46] VITALS: BP 111/68; PULSE 84; RESP 16; TEMP 98.3; O2SAT 98
[2017-03-06] MEDS: MENTHOL LOZENGE BUCCAL PRN (06:02)
[2017-03-06] MEDS: NICOTINE 21 MG/24 HR PATCH T-DERMAL SCH (08:42)
[2017-03-06] MEDS: OLANZapine 10 MG TAB PO SCH (08:42)
[2017-03-06] MEDS ORDERED: clonazePAM 0.5 MG TAB PO ONE (14:45)
[2017-03-06] MEDS: DIVALPROEX SODIUM DELAYED RELEASE 250 MG TAB PO SCH ×2 (15:22→20:37)
--- NOTE | 2017-03-06 16:52 | HHI.PYPN ---
Subjective Remarks Patient seen for follow-up, chart reviewed. Patient was found in day room watching television. Patient noted to be disorganized today stating that she has direct contact with president Tom and Deniz Powers. She also mentions feeling irritated due to recent interaction with another patient who is overtly manic. She states that she spoke with her payee (Tomi, her father) and was told that he would pick her up once she was ready for discharge. She states feeling "a little confused" as she continues to make nonsensical statements. Review of Systems Except as stated in HPI: all other systems reviewed are Neg Mental Status Examination Appearance: Appropriate Consciousness: Alert Orientation: Person, Place Motor Activity: Normal gait Speech: Pressured (less so today but still present) Language: Adequate Fund of Knowledge: Adequate Attention and Concentration: Adequate Memory: Unremarkable Mood: Good Affect: Labile (less so today) Thought Process & Associations: Disorganized (more noted today) Thought Content: Racing thoughts (less so today) Hallucination Type: None Delusion Type: Other (grandeur less today) Suicidal Ideation: No Suicidal Plan: No Suicidal Intention: No Homicidal Ideation: No Homicidal Plan: No Homicidal Intention: No Insight: Poor Judgment: Poor Results Vitals/IOs Vital Signs Date Time Temp Pulse Resp B/P (MAP) Pulse Ox O2 Delivery O2 Flow Rate FiO2 03/06/17 05:46 98.3 84 16 111/68 (82) 98 Assessment & Plan Problem List: (1) Bipolar 1 disorder ICD Codes: F31.9 - Bipolar disorder, unspecified Assessment & Plan Patient today noted to be more disorganized, continues with some pressured speech and some grandiosity today. Will start depakote 250mg PO BID, will switch to zyprexa zydis 10mg PO BID. Discharge planning in progress. Justification for Cont. Inpt. At risk for further decompensation if at lower level of care. Discharge Planning Patient to be discharged back to her residence once psychiatrically stable. Hai Montoya MD Mar 06, 2017 16:52
[2017-03-06 17:52] VITALS: BP 118/62; PULSE 85; RESP 17; TEMP 97.9; O2SAT 98
[2017-03-06] MEDS: OLANZapine ODT 10 MG TAB PO SCH (20:37)
[2017-03-06] MEDS: traZODone HCL 50 MG TAB PO SCH (20:37)
[2017-03-06] MEDS: REMOVE OLD NICODERM (NICOTINE) PATCH T-DERMAL SCH (20:38)
[2017-03-07] MEDS: OLANZapine ODT 10 MG TAB PO SCH ×2 (08:34→21:18)
[2017-03-07] MEDS: DIVALPROEX SODIUM DELAYED RELEASE 250 MG TAB PO SCH (08:34)
[2017-03-07] MEDS: NICOTINE 21 MG/24 HR PATCH T-DERMAL SCH (09:00)
--- NOTE | 2017-03-07 13:21 | HHI.PYPN ---
Subjective Remarks Patient seen for follow-up, chart reviewed. Patient states that her mood lately has been "a little overwhelmed" mentioning that she "want to get organized". She is noted to be less disorganized today. She reports wanting to volunteer in helping the homeless or volunteer in hospice service. She states that she has "60 doctorates". Mental Status Examination Appearance: Appropriate Consciousness: Alert Orientation: Person, Place Motor Activity: Normal gait Speech: Unremarkable Language: Adequate Fund of Knowledge: Adequate Attention and Concentration: Adequate Memory: Unremarkable Mood: Good Affect: Labile Thought Process & Associations: Disorganized (less so today), Tangential Thought Content: Racing thoughts (less so today) Hallucination Type: None Delusion Type: Other (grandeur less today) Suicidal Ideation: No Suicidal Plan: No Suicidal Intention: No Homicidal Ideation: No Homicidal Plan: No Homicidal Intention: No Insight: Poor Judgment: Poor Results Vitals/IOs Vital Signs Date Time Temp Pulse Resp B/P (MAP) Pulse Ox O2 Delivery O2 Flow Rate FiO2 03/06/17 17:52 97.9 85 17 118/62 (80) 98 Assessment & Plan Problem List: (1) Bipolar 1 disorder ICD Codes: F31.9 - Bipolar disorder, unspecified Assessment & Plan Patient noted to be slightly less disorganized but noted to be grandiose today. Will increase depakote to 250mg AM/500mg HS with upward titration as needed for mood stabilization. Continue olanzapine 10mg PO BID. Discharge planning in progress. Justification for Cont. Inpt. Patient seen for follow-up, chart reviewed. Discharge Planning Patient to return back to her residence once psychiatrically stable. Hai Montoya MD Mar 07, 2017 13:21
[2017-03-07 16:06] LABS: BICARBONATE 26.8 MEQ/L (21.0-32.0); POTASSIUM 3.9 MEQ/L (3.5-5.1)
[2017-03-07] MEDS: REMOVE OLD NICODERM (NICOTINE) PATCH T-DERMAL SCH (21:00)
[2017-03-07] MEDS: traZODone HCL 50 MG TAB PO SCH (21:18)
[2017-03-07] MEDS: DIVALPROEX DR 500 MG TABEC PO SCH (21:18)
[2017-03-08 05:42] VITALS: BP 122/60; PULSE 72; RESP 18; TEMP 98.1; O2SAT 97
[2017-03-08] MEDS: OLANZapine ODT 10 MG TAB PO SCH ×2 (09:00→21:10)
[2017-03-08] MEDS: NICOTINE 21 MG/24 HR PATCH T-DERMAL SCH (09:00)
[2017-03-08] MEDS: DIVALPROEX SODIUM DELAYED RELEASE 250 MG TAB PO SCH (09:00)
--- NOTE | 2017-03-08 14:03 | HHI.PYPN ---
Subjective Remarks Patient was seen and case discussed with nursing. Patient remains acutely psychotic. She feels that she has many doctorATES but then feels very scared and paranoid that she release that information wants to make sure that I don't tell anyone. She says she is spending her time studying communism cousin" the thing the killed the other day." Mental Status Examination Appearance: Appropriate Consciousness: Alert Orientation: Person, Place Motor Activity: Normal gait Speech: Unremarkable Language: Adequate Fund of Knowledge: Adequate Attention and Concentration: Adequate Memory: Unremarkable Mood: Good Affect: Labile Thought Process & Associations: Disorganized (less so today), Tangential Thought Content: Bizarre thinking, Delusional Hallucination Type: None Delusion Type: Bizarre, Paranoid Suicidal Ideation: No Suicidal Plan: No Suicidal Intention: No Homicidal Ideation: No Homicidal Plan: No Homicidal Intention: No Insight: Poor Judgment: Poor Results Labs Test 03/07/17 14:07 Blood Urea Nitrogen 15 MG/DL Creatinine 0.80 MG/DL Random Glucose 68 MG/DL Calcium Level 9.6 MG/DL Sodium Level 139 MEQ/L Potassium Level 3.9 MEQ/L Chloride Level 106 MEQ/L Carbon Dioxide Level 26.8 MEQ/L Anion Gap 6 MEQ/L Estimat Glomerular Filtration Rate 79 ML/MIN Vitals/IOs Vital Signs Date Time Temp Pulse Resp B/P (MAP) Pulse Ox O2 Delivery O2 Flow Rate FiO2 03/08/17 05:42 98.1 72 18 122/60 (80) 97 Assessment & Plan Problem List: (1) Bipolar 1 disorder ICD Codes: F31.9 - Bipolar disorder, unspecified Assessment & Plan Continue current treatment plan Justification for Cont. Inpt. Patient would decompensate in a less restrictive setting Octaviano Castillo DO Mar 08, 2017 14:03
[2017-03-08 18:00] VITALS: BP 122/68; PULSE 93; RESP 18; TEMP 98.4; O2SAT 98
[2017-03-08] MEDS: REMOVE OLD NICODERM (NICOTINE) PATCH T-DERMAL SCH (21:00)
[2017-03-08] MEDS: DIVALPROEX DR 500 MG TABEC PO SCH (21:10)
[2017-03-08] MEDS: traZODone HCL 50 MG TAB PO SCH (21:10)
[2017-03-08] MEDS: MENTHOL LOZENGE BUCCAL PRN (21:13)
[2017-03-09 05:51] VITALS: BP 105/58; PULSE 64; RESP 18; TEMP 98.3; O2SAT 96
[2017-03-09] MEDS: OLANZapine ODT 10 MG TAB PO SCH ×2 (09:22→21:11)
[2017-03-09] MEDS: DIVALPROEX SODIUM DELAYED RELEASE 250 MG TAB PO SCH (09:23)
[2017-03-09] MEDS: NICOTINE 21 MG/24 HR PATCH T-DERMAL SCH (09:23)
--- NOTE | 2017-03-09 14:07 | HHI.PYPN ---
Subjective Remarks Patient was seen and case discussed with nursing. Patient remains grossly and bizarrely psychotic. She is perseverant on communists and clearly does not understand the definition of communism her communists as reflected by her statements that they come from the [place]. Denies suicidal or homicidal ideation. Mental Status Examination Appearance: Appropriate Consciousness: Alert Orientation: Person, Place Motor Activity: Normal gait Speech: Unremarkable Language: Adequate Fund of Knowledge: Adequate Attention and Concentration: Adequate Memory: Unremarkable Mood: Good Affect: Labile Thought Process & Associations: Disorganized (less so today), Tangential Thought Content: Bizarre thinking, Delusional Hallucination Type: None Delusion Type: Bizarre, Paranoid Suicidal Ideation: No Suicidal Plan: No Suicidal Intention: No Homicidal Ideation: No Homicidal Plan: No Homicidal Intention: No Insight: Poor Judgment: Poor Results Vitals/IOs Vital Signs Date Time Temp Pulse Resp B/P (MAP) Pulse Ox O2 Delivery O2 Flow Rate FiO2 03/09/17 05:51 98.3 64 18 105/58 (74) 96 Assessment & Plan Problem List: (1) Bipolar 1 disorder ICD Codes: F31.9 - Bipolar disorder, unspecified Assessment & Plan Continue current treatment plan Justification for Cont. Inpt. Patient will decompensate in a less restrictive setting Octaviano Castillo DO Mar 09, 2017 14:07
[2017-03-09 17:09] VITALS: BP 141/62; PULSE 98; RESP 18; TEMP 97.2; O2SAT 98
[2017-03-09] MEDS: REMOVE OLD NICODERM (NICOTINE) PATCH T-DERMAL SCH (21:00)
[2017-03-09] MEDS: DIVALPROEX DR 500 MG TABEC PO SCH (21:11)
[2017-03-09] MEDS: traZODone HCL 50 MG TAB PO SCH (21:11)
[2017-03-10 06:18] VITALS: BP 108/58; PULSE 76; RESP 16; TEMP 98.2; O2SAT 98
[2017-03-10] MEDS: OLANZapine ODT 10 MG TAB PO SCH ×2 (08:55→21:21)
[2017-03-10] MEDS: DIVALPROEX SODIUM DELAYED RELEASE 250 MG TAB PO SCH (08:55)
[2017-03-10] MEDS: NICOTINE 21 MG/24 HR PATCH T-DERMAL SCH (08:59)
[2017-03-10] MEDS: MENTHOL LOZENGE BUCCAL PRN (09:00)
[2017-03-10 17:45] VITALS: BP 123/59; PULSE 99; RESP 18; TEMP 98.2; O2SAT 98
--- NOTE | 2017-03-10 17:51 | HHI.PYPN ---
Subjective Remarks Patient seen for follow-up, chart reviewed. Patient found in day room, calm and cooperative with interview. Patient states that she had a good weekend and felt rested. She also reports feeling anxious as she would like to go home. 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 When asked about Toim, her payee, she states that this is not her father and that she has not kept in touch with her father but that Tomi is her . She continues to be noted to be disorganized, with inconsistent history. She provides the number to Tomi [phone]. Review of Systems Except as stated in HPI: all other systems reviewed are Neg Mental Status Examination Appearance: Appropriate Consciousness: Alert Orientation: Person, Place Motor Activity: Normal gait Speech: Unremarkable Language: Adequate Fund of Knowledge: Adequate Attention and Concentration: Adequate Memory: Unremarkable Mood: Good Affect: Appropriate Thought Process & Associations: Disorganized (less so today), Tangential Thought Content: Bizarre thinking, Delusional Hallucination Type: None Delusion Type: Bizarre, Paranoid Suicidal Ideation: No Suicidal Plan: No Suicidal Intention: No Homicidal Ideation: No Homicidal Plan: No Homicidal Intention: No Insight: Poor Judgment: Poor Results Vitals/IOs Vital Signs Date Time Temp Pulse Resp B/P (MAP) Pulse Ox O2 Delivery O2 Flow Rate FiO2 03/10/17 17:45 98.2 99 18 123/59 (80) 98 Assessment & Plan Problem List: (1) Bipolar 1 disorder ICD Codes: F31.9 - Bipolar disorder, unspecified Assessment & Plan Patient continues to be noted to be disorganized and providing different histories who her payee Tomi is. Collateral information pending. Will order valproic acid level for tomorrow AM and adjust depakote dose accordingly. Continue current treatment for now. Discharge planning in progress. Justification for Cont. Inpt. At risk for further decompensation if at lower level of care. Discharge Planning Patient to return to her residence once psychiatrically stable. Hai Montoya MD Mar 10, 2017 17:51
[2017-03-10] MEDS ORDERED: OLANZapine ODT 5 MG TAB PO SCH (21:00)
[2017-03-10] MEDS: REMOVE OLD NICODERM (NICOTINE) PATCH T-DERMAL SCH (21:00)
[2017-03-10] MEDS: DIVALPROEX DR 500 MG TABEC PO SCH (21:21)
[2017-03-10] MEDS: traZODone HCL 50 MG TAB PO SCH (21:21)
[2017-03-11 06:31] VITALS: BP 112/59; PULSE 94; RESP 18; TEMP 98.2; O2SAT 97
[2017-03-11] MEDS: NICOTINE 21 MG/24 HR PATCH T-DERMAL SCH (08:37)
[2017-03-11] MEDS: OLANZapine ODT 10 MG TAB PO SCH (08:37)
[2017-03-11] MEDS: DIVALPROEX SODIUM DELAYED RELEASE 250 MG TAB PO SCH (08:37)
[2017-03-11 11:34] LABS: BASOPHIL # 0.1 TH/MM3 (0-0.2); BASOPHIL % 1.1 % (0.0-2.0); EOSINOPHIL # 0.2 TH/MM3 (0-0.4); EOSINOPHIL % 1.9 % (0.0-4.0); HEMO FLAGS DIFF FINAL; LYMPH % 33.5 % (9.0-44.0); LYMPHOCYTE # 3.5 TH/MM3 (1.0-4.8); MEAN CELL VOLUME 97.2 FL (80.0-100.0); MEAN CORPUSCULAR HEMOGLOBIN 33.2 PG (27.0-34.0); MEAN CORPUSCULAR HGB CONC 34.2 % (32.0-36.0); MONO % 5.8 % (0.0-8.0); NEUT % 57.7 % (16.0-70.0); PLATELET COUNT 355 TH/MM3 (150-450); RED BLOOD COUNT 4.22 MIL/MM3 (4.00-5.30); RED CELL DISTRIBUTION WIDTH 12.8 % (11.6-17.2); WHITE BLOOD COUNT 10.3 TH/MM3 (4.0-11.0)
[2017-03-11 11:46] LABS: INDIRECT BILIRUBIN 0.2 MG/DL (0.0-0.8); TOTAL BILIRUBIN ADULT 0.3 MG/DL (0.2-1.0)
[2017-03-11] MEDS ORDERED: PALIPERIDONE ER 3 MG TAB PO ONE (14:15)
[2017-03-11] MEDS: OLANZapine 5 MG TAB PO SCH (14:15)
--- NOTE | 2017-03-11 14:37 | HHI.PYPN ---
Subjective Remarks Patient seen for follow-up, chart review. Patient found participating in groups today. Patient states she is feeling "great" states that she spoke with her payee Tomi now states that she has not related to him. Patient continues to state that she has a art museum docent friend who she is in touch with working on a" cold case". Patient also states that she is to a person named 2010 and pleasantly back in with him once discharged. Patient reports that she has not spoken to her father and years. Travel Pta and counselor called Tomi her payee over the phone he states that he is her father and that the patient has had multiple psychiatric hospitalizations. He also mentions that she was for some time but has been years since she has come in contact with her husba Mentions that the patient does live alone and after recently speaking with her feels the patient at baseline. He states the patient has been on several medications in the past that include risperidone, lithium, fluoxetine, Paxil, Depakote and that she responded better previously on risperidone at one point. Review of Systems Except as stated in HPI: all other systems reviewed are Neg Mental Status Examination Appearance: Appropriate Consciousness: Alert Orientation: Person, Place Motor Activity: Normal gait Speech: Unremarkable Language: Adequate Fund of Knowledge: Adequate Attention and Concentration: Adequate Memory: Unremarkable Mood: Good Affect: Appropriate Thought Process & Associations: Disorganized (less so today), Tangential Thought Content: Bizarre thinking, Delusional Hallucination Type: None Delusion Type: Bizarre, Paranoid Suicidal Ideation: No Suicidal Plan: No Suicidal Intention: No Homicidal Ideation: No Homicidal Plan: No Homicidal Intention: No Insight: Poor Judgment: Poor Results Labs Test 03/11/17 10:45 White Blood Count 10.3 TH/MM3 Red Blood Count 4.22 MIL/MM3 Hemoglobin 14.0 GM/DL Hematocrit 41.0 % Mean Corpuscular Volume 97.2 FL Mean Corpuscular Hemoglobin 33.2 PG Mean Corpuscular Hemoglobin Concent 34.2 % Red Cell Distribution Width 12.8 % Platelet Count 355 TH/MM3 Mean Platelet Volume 7.0 FL Neutrophils (%) (Auto) 57.7 % Lymphocytes (%) (Auto) 33.5 % Monocytes (%) (Auto) 5.8 % Eosinophils (%) (Auto) 1.9 % Basophils (%) (Auto) 1.1 % Neutrophils # (Auto) 6.0 TH/MM3 Lymphocytes # (Auto) 3.5 TH/MM3 Monocytes # (Auto) 0.6 TH/MM3 Eosinophils # (Auto) 0.2 TH/MM3 Basophils # (Auto) 0.1 TH/MM3 CBC Comment DIFF FINAL Differential Comment Blood Urea Nitrogen 11 MG/DL Creatinine 0.86 MG/DL Random Glucose 70 MG/DL Total Protein 8.2 GM/DL Albumin 3.5 GM/DL Calcium Level 9.4 MG/DL Alkaline Phosphatase 86 U/L Aspartate Amino Transf (AST/SGOT) 13 U/L Alanine Aminotransferase (ALT/SGPT) 21 U/L Total Bilirubin 0.3 MG/DL Direct Bilirubin 0.1 MG/DL Sodium Level 138 MEQ/L Potassium Level 4.0 MEQ/L Chloride Level 105 MEQ/L Carbon Dioxide Level 27.0 MEQ/L Anion Gap 6 MEQ/L Estimat Glomerular Filtration Rate 73 ML/MIN Indirect Bilirubin 0.2 MG/DL Valproic Acid (Depakene) Level 64 MCG/ML Vitals/IOs Vital Signs Date Time Temp Pulse Resp B/P (MAP) Pulse Ox O2 Delivery O2 Flow Rate FiO2 03/11/17 06:31 98.2 94 18 112/59 (76) 97 Assessment & Plan Problem List: (1) Bipolar 1 disorder ICD Codes: F31.9 - Bipolar disorder, unspecified Assessment & Plan Patient continues to be noted to be disorganized and delusional. Patient has limited response to current antipsychotic, will now cross titrate olanzapine and start paliperidone. We'll continue Depakote at current dose. As the Depakote level was drawn this afternoon will have to request another lab values to be drawn prior to her first dose tomorrow morning for an accurate measure. Discharge planning in progress. Justification for Cont. Inpt. At risk for further decompensation if at lower level of care Discharge Planning Patient to return back to residence once psychiatrically stable. Hai Montoya MD Mar 11, 2017 14:37
[2017-03-11 16:40] VITALS: BP 128/58; PULSE 92; RESP 17; TEMP 98.1; O2SAT 98
[2017-03-11] MEDS: REMOVE OLD NICODERM (NICOTINE) PATCH T-DERMAL SCH (21:00)
[2017-03-11] MEDS ORDERED: OLANZapine ODT 10 MG TAB PO SCH (21:00)
[2017-03-11] MEDS: traZODone HCL 50 MG TAB PO SCH (21:26)
[2017-03-11] MEDS: DIVALPROEX DR 500 MG TABEC PO SCH (21:26)
[2017-03-12 05:37] VITALS: BP 115/55; PULSE 74; RESP 16; TEMP 98.4; O2SAT 97
[2017-03-12] MEDS: NICOTINE 21 MG/24 HR PATCH T-DERMAL SCH (09:00)
[2017-03-12] MEDS: OLANZapine 5 MG TAB PO SCH (09:00)
[2017-03-12] MEDS: DIVALPROEX SODIUM DELAYED RELEASE 250 MG TAB PO SCH (10:48)
[2017-03-12] MEDS: PALIPERIDONE ER 6 MG TAB PO SCH (15:09)
--- NOTE | 2017-03-12 16:46 | HHI.PYPN ---
Subjective Remarks Patient seen for follow-up, chart reviewed. Patient found in day room staring out of the window and noted to be laughing to self. Patient states that she is feeling "cheery today" and optimistic about her treatment. She states that she continues to plan to go to a diner with her father. Patient continues to be noted to be tangential and slightly disorganized. Patient states feeling anxious that she would have resources available to her upon her discharge. Review of Systems Except as stated in HPI: all other systems reviewed are Neg Mental Status Examination Appearance: Appropriate Consciousness: Alert Orientation: Person, Place Motor Activity: Normal gait Speech: Unremarkable Language: Adequate Fund of Knowledge: Adequate Attention and Concentration: Adequate Memory: Unremarkable Mood: Good Affect: Appropriate Thought Process & Associations: Disorganized (less so today), Tangential Thought Content: Bizarre thinking, Delusional Hallucination Type: None Delusion Type: Bizarre, Paranoid Suicidal Ideation: No Suicidal Plan: No Suicidal Intention: No Homicidal Ideation: No Homicidal Plan: No Homicidal Intention: No Insight: Poor Judgment: Poor Results Labs Test 03/12/17 10:49 Valproic Acid (Depakene) Level 64 MCG/ML Vitals/IOs Vital Signs Date Time Temp Pulse Resp B/P (MAP) Pulse Ox O2 Delivery O2 Flow Rate FiO2 03/12/17 05:37 98.4 74 16 115/55 (75) 97 Assessment & Plan Problem List: (1) Bipolar 1 disorder ICD Codes: F31.9 - Bipolar disorder, unspecified Assessment & Plan Patient continues to be tangential and disorganized. Patient to continue cross titration. Depakote level within therapeutic range. Discharge planning in progress. Justification for Cont. Inpt. At risk for decompensation if at lower level of care. Discharge Planning Patient to return back to residence once psychiatrically stable. Hai Montoya MD Mar 12, 2017 16:46
[2017-03-12 17:50] VITALS: BP 138/72; PULSE 89; RESP 18; TEMP 97.7; O2SAT 98
[2017-03-12] MEDS: DIVALPROEX DR 500 MG TABEC PO SCH (20:58)
[2017-03-12] MEDS: traZODone HCL 50 MG TAB PO SCH (20:59)
[2017-03-12] MEDS ORDERED: OLANZapine ODT 5 MG TAB PO SCH (21:00)
[2017-03-12] MEDS: REMOVE OLD NICODERM (NICOTINE) PATCH T-DERMAL SCH (21:00)
[2017-03-13 05:18] VITALS: BP 104/59; PULSE 86; RESP 17; TEMP 97.9; O2SAT 94
[2017-03-13] MEDS: OLANZapine 5 MG TAB PO SCH (09:01)
[2017-03-13] MEDS: NICOTINE 21 MG/24 HR PATCH T-DERMAL SCH (09:01)
[2017-03-13] MEDS: PALIPERIDONE ER 6 MG TAB PO SCH (09:01)
[2017-03-13] MEDS: DIVALPROEX SODIUM DELAYED RELEASE 250 MG TAB PO SCH (09:01)
--- NOTE | 2017-03-13 12:23 | HHI.PYPN ---
Subjective Remarks Patient seen for follow-up, chart reviewed. Patient was found in the room was able to engage in interview today. Patient states that she has been feeling "pretty well". Patient reports sleeping well and appetite, states that her concentration "isn't that well" and is having some trouble with memory easily but states it is improving. 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 Patient states her father was "disavowed" when he was younger and states that her father's name was direct. Patient was asked about her which she states has contact with him recently and states that they're planning a wedding. Patient at this time continues to be disorganized. Review of Systems Except as stated in HPI: all other systems reviewed are Neg Mental Status Examination Appearance: Appropriate Consciousness: Alert Orientation: Person, Place Motor Activity: Normal gait Speech: Unremarkable Language: Adequate Fund of Knowledge: Adequate Attention and Concentration: Adequate Memory: Unremarkable Mood: Good Affect: Appropriate Thought Process & Associations: Disorganized, Tangential (less so today) Thought Content: Bizarre thinking, Delusional Hallucination Type: None Delusion Type: Bizarre, Paranoid Suicidal Ideation: No Suicidal Plan: No Suicidal Intention: No Homicidal Ideation: No Homicidal Plan: No Homicidal Intention: No Insight: Poor Judgment: Poor Results Vitals/IOs Vital Signs Date Time Temp Pulse Resp B/P (MAP) Pulse Ox O2 Delivery O2 Flow Rate FiO2 03/13/17 05:18 97.9 86 17 104/59 (74 94 Assessment & Plan Problem List: (1) Bipolar 1 disorder ICD Codes: F31.9 - Bipolar disorder, unspecified Assessment & Plan Patient at this time continues to be noted to be disorganized but less tangential. Patient continues to make statements that appear not to be true as per conversation with his father. Cross titration to be completed completed today. Patient will continue on paliperidone 6 mg by mouth daily along with Depakote 250 mg a.m., 500 mg at bedtime. Continue aggressive treatment regimen. Discharge planning in progress. Justification for Cont. Inpt. Patient seen for follow-up, chart reviewed. Discharge Planning Patient was discharged back to her residence once psychiatrically stable. Hai Montoya MD Mar 13, 2017 12:23
[2017-03-13 16:32] VITALS: BP 124/71; PULSE 109; RESP 17; TEMP 98.2; O2SAT 99
[2017-03-13] MEDS: traZODone HCL 50 MG TAB PO SCH (20:16)
[2017-03-13] MEDS: DIVALPROEX DR 500 MG TABEC PO SCH (20:16)
[2017-03-13] MEDS: REMOVE OLD NICODERM (NICOTINE) PATCH T-DERMAL SCH (21:00)
[2017-03-14 05:38] VITALS: BP 105/72; PULSE 72; RESP 17; TEMP 98.4; O2SAT 95
[2017-03-14] MEDS: DIVALPROEX SODIUM DELAYED RELEASE 250 MG TAB PO SCH ×2 (08:56→22:31)
[2017-03-14] MEDS: NICOTINE 21 MG/24 HR PATCH T-DERMAL SCH (08:57)
[2017-03-14] MEDS: PALIPERIDONE ER 6 MG TAB PO SCH (08:57)
--- NOTE | 2017-03-14 14:02 | HHI.PYPN ---
Subjective Remarks Patient seen for follow-up, chart review. Patient found in the room, cooperative today. Patient states that she feels "great" on the paliperidone. Patient stated her mood has been "good" denies any suicidal homicidal ideations , denies any perceptual disturbances. Patient states that she spoke with her payee, Tomi, and states that he feels optimistic about her progress. Patient states that upon discharge she plans on having Tomi continue to be involved in her care. Patient states that she plans on returning back to her residence once she is discharged. Review of Systems Except as stated in HPI: all other systems reviewed are Neg Mental Status Examination Appearance: Appropriate Consciousness: Alert Orientation: Person, Place Motor Activity: Normal gait Speech: Unremarkable Language: Adequate Fund of Knowledge: Adequate Attention and Concentration: Adequate Memory: Unremarkable Mood: Good Affect: Appropriate Thought Process & Associations: Disorganized (less so today), Tangential (less so today) Thought Content: Bizarre thinking (less so today), Delusional Hallucination Type: None Delusion Type: Bizarre (less so today) Suicidal Ideation: No Suicidal Plan: No Suicidal Intention: No Homicidal Ideation: No Homicidal Plan: No Homicidal Intention: No Insight: Poor Judgment: Poor Results Vitals/IOs Vital Signs Date Time Temp Pulse Resp B/P (MAP) Pulse Ox O2 Delivery O2 Flow Rate FiO2 03/14/17 05:38 98.4 72 17 105/72 (83) 95 Assessment & Plan Problem List: (1) Bipolar 1 disorder ICD Codes: F31.9 - Bipolar disorder, unspecified Assessment & Plan Patient appears to be less disorganized along with less pressured speech, less tangentiality. We'll increase risperidone to 9 mg by mouth daily for mood stabilization. Discharge planning in progress Justification for Cont. Inpt. At risk for further decompensation if at lower level of care Discharge Planning Patient likely be discharged back to her residence as well as psychiatric stable. Hai Montoya MD Mar 14, 2017 14:02
[2017-03-14 17:30] VITALS: BP 125/59; PULSE 106; RESP 16; TEMP 98.3; O2SAT 98
[2017-03-14] MEDS: DIVALPROEX DR 500 MG TABEC PO SCH (21:00)
[2017-03-14] MEDS: REMOVE OLD NICODERM (NICOTINE) PATCH T-DERMAL SCH (21:00)
[2017-03-14] MEDS: traZODone HCL 50 MG TAB PO SCH (21:00)
[2017-03-15 05:49] VITALS: BP 125/58; PULSE 83; RESP 17; TEMP 98; O2SAT 96
[2017-03-15] MEDS: NICOTINE 21 MG/24 HR PATCH T-DERMAL SCH (09:25)
[2017-03-15] MEDS: PALIPERIDONE ER 3 MG TAB PO SCH (09:27)
--- NOTE | 2017-03-15 14:59 | HHI.PYPN ---
Subjective Remarks Pt seen and discussed with staff. She reports that mood is better since starting invega. Yesterday she attempted to drink mouthwash. She states that she gets confused and thinks she has dementia and complains of thoughts being muddled. She is tolerating increase in invega without side effects. Mental Status Examination Appearance: Appropriate Consciousness: Alert Orientation: Person, Place Motor Activity: Normal gait Speech: Unremarkable Language: Adequate Fund of Knowledge: Adequate Attention and Concentration: Adequate Memory: Unremarkable Mood: Good Affect: Appropriate Thought Process & Associations: Disorganized, Tangential (less so today) Thought Content: Bizarre thinking, Delusional Hallucination Type: None Delusion Type: Bizarre Suicidal Ideation: No Suicidal Plan: No Suicidal Intention: No Homicidal Ideation: No Homicidal Plan: No Homicidal Intention: No Insight: Poor Judgment: Poor Results Vitals/IOs Vital Signs Date Time Temp Pulse Resp B/P (MAP) Pulse Ox O2 Delivery O2 Flow Rate FiO2 03/15/17 05:49 98.0 83 17 125/58 (80) 96 Assessment & Plan Problem List: (1) Bipolar 1 disorder ICD Codes: F31.9 - Bipolar disorder, unspecified Assessment & Plan continue tx plan. Estimated LOS: days Justification for Cont. Inpt. impairments in reality testing Joseline Lopez MD Mar 15, 2017 14:59
[2017-03-15 18:19] VITALS: BP 125/71; PULSE 97; RESP 16; TEMP 98.6; O2SAT 98
[2017-03-15] MEDS: REMOVE OLD NICODERM (NICOTINE) PATCH T-DERMAL SCH (21:00)
[2017-03-15] MEDS: DIVALPROEX DR 500 MG TABEC PO SCH (21:48)
[2017-03-15] MEDS: traZODone HCL 50 MG TAB PO SCH (21:49)
[2017-03-16 06:28] VITALS: BP 107/57; PULSE 86; RESP 16; TEMP 98.4; O2SAT 97
[2017-03-16] MEDS: NICOTINE 21 MG/24 HR PATCH T-DERMAL SCH (09:00)
[2017-03-16] MEDS: PALIPERIDONE ER 3 MG TAB PO SCH (09:15)
[2017-03-16] MEDS: DIVALPROEX SODIUM DELAYED RELEASE 250 MG TAB PO SCH (09:15)
--- NOTE | 2017-03-16 16:07 | HHI.PYPN ---
Subjective Remarks Pt seen and discussed with staff. She has been irritable and isolative to her room. No SI/HI. Less disorganized today. Mental Status Examination Appearance: Appropriate Consciousness: Alert Orientation: Person, Place Motor Activity: Normal gait Speech: Unremarkable Language: Adequate Fund of Knowledge: Adequate Attention and Concentration: Adequate Memory: Unremarkable Mood: Good Affect: Appropriate Thought Process & Associations: Disorganized, Tangential (less so today) Thought Content: Bizarre thinking, Delusional Hallucination Type: None Delusion Type: Bizarre Suicidal Ideation: No Suicidal Plan: No Suicidal Intention: No Homicidal Ideation: No Homicidal Plan: No Homicidal Intention: No Insight: Poor Judgment: Poor Results Vitals/IOs Vital Signs Date Time Temp Pulse Resp B/P (MAP) Pulse Ox O2 Delivery O2 Flow Rate FiO2 03/16/17 06:28 98.4 86 16 107/57 (74) 97 Assessment & Plan Problem List: (1) Bipolar 1 disorder ICD Codes: F31.9 - Bipolar disorder, unspecified Assessment & Plan Continue current tx plan. Estimated LOS: days Justification for Cont. Inpt. impairments in reality testing Joseline Lopez MD Mar 16, 2017 16:07
[2017-03-16 17:07] VITALS: BP 119/66; PULSE 90; RESP 18; TEMP 97.9; O2SAT 100
[2017-03-16] MEDS: traZODone HCL 50 MG TAB PO SCH (20:24)
[2017-03-16] MEDS: DIVALPROEX DR 500 MG TABEC PO SCH (20:24)
[2017-03-16] MEDS: REMOVE OLD NICODERM (NICOTINE) PATCH T-DERMAL SCH (20:25)
[2017-03-17 05:45] VITALS: BP 106/55; PULSE 68; RESP 18; TEMP 98.3; O2SAT 96
[2017-03-17] MEDS: NICOTINE 21 MG/24 HR PATCH T-DERMAL SCH (08:26)
[2017-03-17] MEDS: DIVALPROEX SODIUM DELAYED RELEASE 250 MG TAB PO SCH (08:26)
[2017-03-17] MEDS: PALIPERIDONE ER 3 MG TAB PO SCH (08:26)
--- NOTE | 2017-03-17 13:56 | HHI.PYPN ---
Subjective Remarks Patient is a follow, chart reviewed. Patient found lying in hospital bed, calm and cooperative in interview today. Patient stated a week and has been "good", reports to have not spoken to her. She she would go over the weekend but states that she is feeling much more optimistic now that she is "thinking clearer". Patient denies any perceptual disturbances at this time. Review of Systems Except as stated in HPI: all other systems reviewed are Neg Mental Status Examination Appearance: Appropriate Consciousness: Alert Orientation: Person, Place Motor Activity: Normal gait Speech: Unremarkable Language: Adequate Fund of Knowledge: Adequate Attention and Concentration: Adequate Memory: Unremarkable Mood: Good Affect: Appropriate Thought Process & Associations: Disorganized (less so today) Thought Content: Delusional (less so today) Hallucination Type: None Delusion Type: Bizarre (less today) Suicidal Ideation: No Suicidal Plan: No Suicidal Intention: No Homicidal Ideation: No Homicidal Plan: No Homicidal Intention: No Insight: Poor Judgment: Poor Results Vitals/IOs Vital Signs Date Time Temp Pulse Resp B/P (MAP) Pulse Ox O2 Delivery O2 Flow Rate FiO2 03/17/17 05:45 98.3 68 18 106/55 (72) 96 Assessment & Plan Problem List: (1) Bipolar 1 disorder ICD Codes: F31.9 - Bipolar disorder, unspecified Assessment & Plan Patient noted to be more organized today less tangential, denies any perceptual disturbances. Continue current treatment for now. Family meeting with her father/payee (Tomi) scheduled for tomorrow. Continue current treatment for now. Discharge planning in progress Justification for Cont. Inpt. Patient noted to be more organized today less tangential, denies any perceptual disturbances. Discharge Planning Patient to return back to her residence once psychiatrically stable. Hai Montoya MD Mar 17, 2017 13:56
[2017-03-17 15:34] VITALS: BP 145/59; PULSE 92; RESP 18; TEMP 98.2; O2SAT 99
[2017-03-17] MEDS: REMOVE OLD NICODERM (NICOTINE) PATCH T-DERMAL SCH (20:58)
[2017-03-17] MEDS: DIVALPROEX DR 500 MG TABEC PO SCH (20:58)
[2017-03-17] MEDS: traZODone HCL 50 MG TAB PO SCH (20:58)
[2017-03-17] MEDS: MENTHOL LOZENGE BUCCAL PRN (21:18)
[2017-03-18 05:35] VITALS: BP 108/55; PULSE 69; RESP 17; TEMP 98.4; O2SAT 96
[2017-03-18] MEDS: MENTHOL LOZENGE BUCCAL PRN ×3 (08:57→17:47)
[2017-03-18] MEDS: PALIPERIDONE ER 3 MG TAB PO SCH (08:57)
[2017-03-18] MEDS: DIVALPROEX SODIUM DELAYED RELEASE 250 MG TAB PO SCH (08:58)
[2017-03-18] MEDS: NICOTINE 21 MG/24 HR PATCH T-DERMAL SCH (08:59)
--- NOTE | 2017-03-18 13:00 | PD.TTN ---
Patient Problems 1. Discharge planning 2. Medication compliance 3. Knowledge deficit 4. Lack of coping skills Progress Toward Goals Provider Present: Dr. Susanne Montoya Provider Input: Dr. Montoya reported that he adjusted patient's medication yesterday and will request a peer to peer review today. Patient reported "feeling good and well rested." According to Dr. Montoya a possible discharge date is this Friday. Psychiatric Counselors Present: VIKTOR Graham Psych Therapist Input: Counselor reported the patient will return home to her condo following discharge. Patient has made multiple references to her bulimia and consequently counselor will provide patient with information realted to eating disorder groups. Patient's thoughts remain disorganized with a flight of ideas and some grandiosity. Group Spec/RT/OT/CROWELL Present: Jung Lyles OT Occupational Therapist Input: Mono reports the patient attends all groups, and is socially appropriate. Discharge Plan Patient's choice of Provider Documentation Scribe: VIKTOR Graham Date Resolved: Mar 05, 2017 Hedy MarquezCinthya Mar 18, 2017 13:00
--- NOTE | 2017-03-18 15:55 | HHI.PYPN ---
Subjective Remarks Patient seen for follow-up, chart review. Patient found in the day room watching television, cooperative interview today. Patient states that she is feeling "much better, states that she was visited by her payee (Tomi) yesterday which she discussed her plans upon discharge. Patient states that upon discharge she would like to return back to her studies. 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 Patient required redirection back to the conversation at times but was redirectable. Patient denies any perceptual disturbances at this time. As per collateral information obtained by therapist, polyuria, patient's father (Tomi) stated the patient was noted upon visit with him yesterday to be 100% better but still felt patient was still "a little manicky". And was agreeable to the idea of patient be referred to an assisted living facility to increase compliance and provide some structure. Review of Systems Except as stated in HPI: all other systems reviewed are Neg Mental Status Examination Appearance: Appropriate Consciousness: Alert Orientation: Person, Place Motor Activity: Normal gait Speech: Unremarkable Language: Adequate Fund of Knowledge: Adequate Attention and Concentration: Adequate Memory: Unremarkable Mood: Good Affect: Appropriate Thought Process & Associations: Disorganized (at times), Tangential (at times) Thought Content: Racing thoughts (less so today), Delusional Hallucination Type: None Delusion Type: Bizarre (less today) Suicidal Ideation: No Suicidal Plan: No Suicidal Intention: No Homicidal Ideation: No Homicidal Plan: No Homicidal Intention: No Insight: Poor (improving) Judgment: Poor Results Vitals/IOs Vital Signs Date Time Temp Pulse Resp B/P (MAP) Pulse Ox O2 Delivery O2 Flow Rate FiO2 03/18/17 05:35 98.4 69 17 108/55 (72 96 Assessment & Plan Problem List: (1) Bipolar 1 disorder ICD Codes: F31.9 - Bipolar disorder, unspecified Assessment & Plan Patient noted to be slightly disorganized and tangential today but has so shown improvement since admission. We'll increase paliperidone to 12 mg by mouth daily. Continue Depakote 500 mg by mouth twice a day was stabilization. She' ll continue will propose assisted living facility patient to provide an environment with more structure and to increase compliance with treatment postdischarge. Per conversation with patient's father (Tomi), he agrees that this may be beneficial this type of environment. Discharge planning in progress Justification for Cont. Inpt. At risk for further decompensation if at lower level of care Discharge Planning Patient if agrees will be referred to an assisted living facility upon discharge. Hai Montoya MD Mar 18, 2017 15:55
[2017-03-18 16:10] VITALS: BP 139/75; PULSE 104; RESP 18; TEMP 98.4; O2SAT 98
[2017-03-18] MEDS: DIVALPROEX DR 500 MG TABEC PO SCH (20:56)
[2017-03-18] MEDS: traZODone HCL 50 MG TAB PO SCH (20:56)
[2017-03-18] MEDS: REMOVE OLD NICODERM (NICOTINE) PATCH T-DERMAL SCH (21:00)
[2017-03-19 06:19] VITALS: BP 111/65; PULSE 71; RESP 18; TEMP 98; O2SAT 96
[2017-03-19] MEDS: DIVALPROEX SODIUM DELAYED RELEASE 250 MG TAB PO SCH (08:21)
[2017-03-19] MEDS: PALIPERIDONE ER 3 MG TAB PO SCH (08:22)
[2017-03-19] MEDS: NICOTINE 21 MG/24 HR PATCH T-DERMAL SCH (08:22)
--- NOTE | 2017-03-19 13:15 | HHI.PYPN ---
Subjective Remarks Patient seen for follow-up, chart reviewed. Patient found folding her bed sheets, calm and cooperative with interview. Patient denies any physical complaints, noted to be less tangential and disorganized. She states feeling "ok ", denies any perceptual disturbances. The possibility of referral to an assisted living facility was discussed with patient which at this time was considering but was not wanting to change her current residence. Review of Systems Except as stated in HPI: all other systems reviewed are Neg Mental Status Examination Appearance: Appropriate Consciousness: Alert Orientation: Person, Place Motor Activity: Normal gait Speech: Unremarkable Language: Adequate Fund of Knowledge: Adequate Attention and Concentration: Adequate Memory: Unremarkable Mood: Good Affect: Appropriate Thought Process & Associations: Logical, Linear Thought Content: Appropriate Hallucination Type: None Suicidal Ideation: No Suicidal Plan: No Suicidal Intention: No Homicidal Ideation: No Homicidal Plan: No Homicidal Intention: No Insight: Fair Judgment: Impulsive Results Vitals/IOs Vital Signs Date Time Temp Pulse Resp B/P (MAP) Pulse Ox O2 Delivery O2 Flow Rate FiO2 03/19/17 06:19 98.0 71 18 111/65 (80) 96 Assessment & Plan Problem List: (1) Bipolar 1 disorder ICD Codes: F31.9 - Bipolar disorder, unspecified Assessment & Plan Patient noted to have more organization and less tangential. Continue current treatment. Will offer BUCK of Invega Sustenna 234mg IM. Patient offered referral to [facility] but at this time seems resistant to the idea. Discharge planning in progress. Justification for Cont. Inpt. At risk for further decompensation if at lower level of care. Discharge Planning Patient likely to return back to her residence upon discharge this week. Hai Montoya MD Mar 19, 2017 13:15
--- NOTE | 2017-03-19 13:43 | PD.TTN ---
Patient Problems 1. Discharge planning 2. Medication compliance 3. Knowledge deficit 4. Lack of coping skills Progress Toward Goals Provider Present: Dr. Susanne Montoya Provider Input: Dr. Montoya reported that he adjusted patient's medication yesterday and will request a peer to peer review today. Patient reported "feeling good and well rested." Nurse(s) Input: Patient is compliant with medications and is easily redirectable. Patient has no behavioral issues on the unit. Psychiatric Counselors Present: VIKTOR Graham, VIKTOR Monroy Psych Therapist Input: Patient is compliant and cooperative with counselor. Counselor, patient and housing case manager Jenifer met to discuss dishcarge plans. Patient states that she want to return and live in her own apartment. Jenifer states that she is willing to be patient's housing case manager and help her with follow up care. Patient was in agreement with this. Patient continues to make random "odd" statements that are not appropriate to the conversation but is easily redirected. Group Spec/RT/OT/CROWELL Present: MERVAT Radford Group Spec/RT/OT/CROWELL Input: Patient does attend some groups and is somewhat intrusive and childlike. Occupational Therapist Input: Mono reports the patient attends all groups, and is socially appropriate. Discharge Plan Patient's choice of Provider Documentation Scribe: VIKTOR Graham Date Resolved: Mar 05, 2017 Hedy Marquez Mar 19, 2017 13:43
--- NOTE | 2017-03-19 13:52 | PD.TTN ---
Patient Problems 1. Discharge planning 2. Medication compliance 3. Knowledge deficit 4. Lack of coping skills Progress Toward Goals Provider Present: Dr. Susanne Montoya Provider Input: Dr. Montoya reported that he adjusted patient's medication yesterday and will request a peer to peer review today. Patient reported "feeling good and well rested." Nurse(s) Input: Patient is compliant with medications and is easily redirectable. Patient has no behavioral issues on the unit. Psychiatric Counselors Present: VIKTOR Graham, VIKTOR Monroy Psych Therapist Input: Patient is compliant and cooperative with counselor. Counselor, patient and case finisher Jenifre met to discuss dishcarge plans. Patient states that she want to return and live in her own apartment. Jenifer states that she is willing to be patient's case finisher and help her with follow up care. Patient was in agreement with this. Patient continues to make random "odd" statements that are not appropriate to the conversation but is easily redirected. Group Spec/RT/OT/CROWELL Present: MERVAT Radford Group Spec/RT/OT/CROWELL Input: Patient does attend some groups and is somewhat intrusive and childlike. Occupational Therapist Input: Mono reports the patient attends all groups, and is socially appropriate. Discharge Plan Patient's choice of Provider Documentation Scribe: VIKTOR Graham Date Resolved: Mar 05, 2017 Hedy Marquez Mar 19, 2017 13:52
[2017-03-19 17:00] VITALS: BP 164/77; PULSE 80; RESP 18; TEMP 98.8; O2SAT 99
[2017-03-19] MEDS: REMOVE OLD NICODERM (NICOTINE) PATCH T-DERMAL SCH (21:00)
[2017-03-19] MEDS: DIVALPROEX DR 500 MG TABEC PO SCH (21:27)
[2017-03-19] MEDS: traZODone HCL 50 MG TAB PO SCH (21:28)
[2017-03-20 05:27] VITALS: BP 101/53; PULSE 72; RESP 16; TEMP 98.3; O2SAT 96
[2017-03-20] MEDS: DIVALPROEX SODIUM DELAYED RELEASE 250 MG TAB PO SCH (08:25)
[2017-03-20] MEDS: PALIPERIDONE ER 3 MG TAB PO SCH (08:26)
[2017-03-20] MEDS: NICOTINE 21 MG/24 HR PATCH T-DERMAL SCH (08:27)
[2017-03-20] MEDS ORDERED: PALI1TAB3 PO (10:57)
[2017-03-20] MEDS ORDERED: TRAZ50TA12 PO (10:57)
[2017-03-20] MEDS ORDERED: DIVA250T PO (10:57)
[2017-03-20] MEDS ORDERED: DIVA500T PO (10:57)
--- NOTE | 2017-03-20 14:28 | HHI.DS ---
Psychiatry Discharge Summary Inpatient Psychiatric care?: Yes Advance Directive: No Reason Not Provided: Due to Patient Condition Mental Health AdvanceDirective: No Health Care Proxy: No Admission Admission Date Feb 26, 2017 at 10:37 Admission Diagnosis: (1) Bipolar 1 disorder ICD Code: F31.9 - Bipolar disorder, unspecified Brief History Patient is a 41 y/o woman with no children, unemployed, with unclear past psychiatric history, bipolar as per chart but depression and anxiety as per pt, previous psychiatric admissions, no prior suicide attempts or self injurious behavior, who was brought under exparte due to patient threated to kil her father and noted having delusions of grandeur which she was transferred to the inpatient psychiatry unit for further evaluation and management. Patient was seen on the inpatient psychiatry unit, able to engage in interview and noted to have pressured speech. Patient states that she that she wants to do volunteer work, a "self fulfilling prophecy" wanting to help the "homeless and consumers". She states that she has neurosis which makes her hypochondria. She reports decreased need for sleep which she has been up for weeks "I dont sleep I only nap" which she is up cleaning all night. She also reports decreased concentration, increased energy lately, racing thoughts, distractibility, irritable at times but denies any perceptual disturbances. She reports having some paranoia. Currently she reports feeling "pretty good". She states that her payee is Tomi Ribera (father) [phone]. Family psychiatric history: "mom is retarded" Past psychiatric history: previous psychiatric diagnosis of bipolar disorder as per chart but patient denies this and states depression and anxiety, three previous psychiatric admissions, no previous suicide attempt or history of self injurious behavior. Outpatient psychiatrist at [facility] which she reports being prescribed trazodone, buspar, prozac. Substance use history: tobacco (+), denies history of alcohol or any other illicit drug use. 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 Tobacco Use In Past 30 Days: 5 or More Cigarettes/Day Alcohol Use: Never Hospital Course Patient is a 41 y/o woman with no children, unemployed, with unclear past psychiatric history, bipolar as per chart but depression and anxiety as per pt, previous psychiatric admissions, no prior suicide attempts or self injurious behavior, who was brought under exparte due to patient threated to kil her father and noted having delusions of grandeur which she was transferred to the inpatient psychiatry unit for further evaluation and management. Patient was started on aripiprazole 15mg PO daily and titrated to 30mg PO daily with partial response which was later switched to olanzapine 5mg PO BID with upward titration to 20mg PO BID with limited response which Depakote 250mg/ 500mg PO was added and found within therapeutic range. Patient was then cross titrated from olanzapine to paliperidone up to 12mg PO daily with noted improvement. Patient tolerated medications well with no ADRs. She was noted to be with improved mood, decrease in manic symptoms, organized thought process with no suicidal or homicidal ideations, future oriented, participatory in groups and activities, and cooperative with staff. Upon discharge, patient stated feeling that the medication regimen is helpful denied any SI, HI, AVH at time of interview. She agrees to continue treatment and outpatient follow up for continuity of care as well as consider day programs. Supportive psychotherapy provided. Patient advised to call 911 or go nearest ED in case of emergency. Patient agrees with plan. Results Blood Pressure 101 / 53 Vital Signs Date Time Temp Pulse Resp B/P (MAP) Pulse Ox O2 Delivery O2 Flow Rate FiO2 03/20/17 05:27 98.3 72 16 101/53 (69) 96 Laboratory Results Test 03/12/17 10:49 Valproic Acid (Depakene) Level 64 MCG/ML (50-100) Summary of Procedures None Pending results at discharge: No Medications # of Antipsychotic meds at D/C: 1 Approp Antipsych med options 1 - Minimum of three failed multiple trials of monotherapy. 2 - Documented plan to taper to monotherapy due to previous use of multiple meds OR cross-taper in progress at D/C. 3 - Documentation of augmentation of Clozapine. 4 - Justification other than those listed in allowable values 1-3, document here : Discharge Discharge Date: Mar 20, 2017 Discharge Diagnosis: (1) Bipolar 1 disorder Diagnosis: Principal ICD Code: F31.9 - Bipolar disorder, unspecified Pt Condition on Discharge: Stable Discharge Disposition: Discharge Home Discharge Instructions Diet Instructions: As Tolerated, No Restrictions Activities you can perform: Regular-No Restrictions Scheduled Appointment: Joel Quevedo Appointment Date: Mar 21, 2017 Appointment Time: 7:30am Discharge Time > 30 minutes Mental Status Examination Appearance: Appropriate Consciousness: Alert Orientation: Person, Place, Date/Time Motor Activity: Normal gait Speech: Unremarkable Language: Adequate Fund of Knowledge: Adequate Attention and Concentration: Adequate Memory: Unremarkable Mood: Good Affect: Appropriate Thought Process & Associations: Logical, Goal directed, Linear Thought Content: Appropriate Hallucination Type: None Delusion Type: None Suicidal Ideation: No Suicidal Plan: No Suicidal Intention: No Homicidal Ideation: No Homicidal Plan: No Homicidal Intention: No Insight: Adequate Judgment: Adequate Discharge/Advance Care Plan Health Problems: (1) Bipolar 1 disorder Goals to promote your health * To prevent worsening of your condition and complications * To maintain your health at the optimal level Directions to meet your goals Take your medications as prescribed Follow your dietary instruction Follow activity as directed Keep your appointments as scheduled Take your immunizations and boosters as scheduled If your symptoms worsen call your PCP, if no PCP go to Urgent Care Center or Emergency Room For 16/12 questions related to your inpatient stay or results of tests pending at discharge, please contact Dr. Hai Montoya at Smoking is Dangerous to Your Health. Avoid second hand smoking Hai Montoya MD Mar 20, 2017 14:28
== END 2017-03-20 11:50 | disposition home or self-care (01) | DRG 885 ==
LOC: NEPJ 15:37 → NEDA 02-26 10:37 → H260 02-26 11:00
PROVIDERS: ADMIT Student in an Organized Health Care Education/Training Program; ATTEND Student in an Organized Health Care Education/Training Program
DX: F31.9 Bipolar disorder, unspecified (principal); Z91.14 Patient's other noncompliance with medication regimen; I10 Essential (primary) hypertension; Z72.0 Tobacco use
CPT/HCPCS: 80048; 80053; 80076; 80164; 80307; 81001; 85025